=== PATIENT | male | born 1955 | race Caucasian/White ===

== ENCOUNTER 2022-08-30 09:53 | Outpatient (REF) | payer MEDICARE, SELFPAY ==
[2022-08-30 10:35] LABS: Hematocrit 43.6 % (42.0-52.0); Hemoglobin 14.8 g/dl (14.0-18.0); Mean Corpuscular HGB Conc 33.9 g/dl (31.0-36.0); Mean Corpuscular Hemoglobin 31.8 pg (27.0-33.0); Mean Corpuscular Volume 93.8 fL (80.0-98.0); Platelet Count 281 X10*3/uL (160-400); Red Blood Count 4.65 X10*6/uL (4.60-5.80); Red Cell Distribution Width 13.7 % (11.0-16.0); White Blood Count 11.7 X10*3/uL (4.8-10.8)
[2022-08-30 11:04] LABS: Alanine Aminotransferase 18 U/L (0-40); Albumin Level 4.2 g/dL (3.5-5.0); Alkaline Phosphatase 89 U/L (39-117); Aspartate Amino Transferase 21 U/L (5-37); Bilirubin Direct 0.2 mg/dL (0.0-0.5); Bilirubin Total 0.4 mg/dL (0.0-1.0); Iron 96 mcg/dL (45-160); Percent Iron Saturation 32 % (15-50); Total Iron Binding Capacity 298 mcg/dL (228-428); Total Protein 6.8 g/dL (6.5-8.0); Unsaturated Iron Binding 202 ug/dL
[2022-08-30 11:16] LABS: Ferritin 78 ng/mL (20-250)
[2022-09-06 01:32] LABS: FIB-ALT 14 U/L (9-46); FIB-Alpha-2-Macroglobulin 239 mg/dL (106-279); FIB-Apolipoprotein A1 183 mg/dL (94-176); FIB-GGT 22 U/L (3-70); FIB-Haptoglobin 176 mg/dL (43-212); FIB-Total Bilirubin 0.4 mg/dL (0.2-1.2); Liver Fibrosis Score 0.21; Liver Fibrosis Stage F0; Nec Inflam Act Grade A0; Nec Inflam Act Score 0.04
== END 2022-08-30 09:54 | disposition home or self-care (01) ==
LOC: HO.10HDL 09:53
PROVIDERS: Visit Provider Internal Medicine Gastroenterology
DX: B19.20 Unspecified viral hepatitis C without hepatic coma (principal)
CPT/HCPCS: 36415; 80076; 81596; 82728; 83540; 85027

== ENCOUNTER 2022-09-27 07:14 | Outpatient (REF) | payer MEDICARE, SELFPAY ==
[2022-09-27 11:27] LABS: MANUAL DIFF FLAG NO
[2022-09-27 11:43] LABS: Basophils Absolute Auto 0.1 X10*3/uL (0.0-0.2); Basophils Percent Auto 0.7 % (0-2); Eosinophils Absolute Auto 0.4 X10*3/uL (0.0-0.4); Eosinophils Percent Auto 3.8 % (0-4); Hematocrit 45.3 % (42.0-52.0); Hemoglobin 15.4 g/dl (14.0-18.0); Imm Gran Abs Auto 0.02 X10*3/uL (0.00-0.03); Imm Gran Pct Auto 0.2 % (0.0-0.4); Lymphocytes Absolute Auto 1.9 X10*3/uL (1.2-4.9); Lymphocytes Percent Auto 20.6 % (20-40); Mean Corpuscular Hemoglobin 31.9 pg (27.0-33.0); Mean Corpuscular Volume 93.8 fL (80.0-98.0); Mean Platelet Volume 9.7 fL (9.4-12.4); Monocytes Absolute Auto 0.7 X10*3/uL (0.1-1.2); Monocytes Percent Auto 7.8 % (2-11); Neutrophils Absolute Auto 6.2 x10*3/uL (2.0-8.3); Neutrophils Percent Auto 66.9 % (45-73); Platelet Count 302 X10*3/uL (160-400); Red Blood Count 4.83 X10*6/uL (4.60-5.80); Red Cell Distribution Width 13.3 % (11.0-16.0); White Blood Count 9.2 X10*3/uL (4.8-10.8)
[2022-09-27 12:31] LABS: PSA,Total (Free>4and<10) 1.56 ng/mL (0.00-4.00); Thyroid Stimulating Hormone 2.26 uIU/mL (0.32-4.0)
[2022-09-27 12:38] LABS: Alanine Aminotransferase 16 U/L (0-40); Albumin Level 4.1 g/dL (3.5-5.0); Alkaline Phosphatase 85 U/L (39-117); Anion Gap 14 (12-20); Aspartate Amino Transferase 20 U/L (5-37); Bilirubin Total 0.7 mg/dL (0.0-1.0); Blood Urea Nitrogen 18 mg/dL (9-16); Calcium 9.4 mg/dL (8.4-10.2); Carbon Dioxide 29 mmol/L (22-29); Chloride 104 mmol/L (96-108); Cholesterol 150 mg/dL; Estimated Glomerular Filt Rate > 60; Glucose Fasting 125 mg/dL (60-99); HDL Cholesterol 65 mg/dL; LDL Cholesterol Calculated 72 mg/dl; Potassium 4.4 mmol/L (3.3-5.1); Sodium 143 mmol/L (135-145); Total Protein 6.8 g/dL (6.5-8.0); Triglycerides 65 mg/dL
[2022-09-27 14:45] LABS: Vitamin D 25-OH Total 51.2 ng/mL (>30)
== END 2022-09-27 07:15 | disposition home or self-care (01) ==
LOC: HO.HMGCLDS 07:14
PROVIDERS: PCP Internal Medicine; Visit Provider Internal Medicine
DX: Z00.00 Encounter for general adult medical examination without abnormal findings (principal); K21.9 Gastro-esophageal reflux disease without esophagitis; I10 Essential (primary) hypertension; F41.1 Generalized anxiety disorder; F51.01 Primary insomnia; S30.860A Insect bite (nonvenomous) of lower back and pelvis, initial encounter; K13.70 Unspecified lesions of oral mucosa
CPT/HCPCS: 36415; 80053; 80061; 82306; 84153; 84443; 85025

== ENCOUNTER 2022-11-01 08:34 | Outpatient (REF) | payer MEDICARE, SELFPAY ==
--- NOTE | ~2022-11-01 | US_ITS ---
EXAMINATION: US COMPLETE ABDOMEN WITH LIVER ELASTOGRAPHY CLINICAL INFORMATION: Hepatitis C virus. COMPARISON: None. TECHNIQUE: Real-time imaging of the abdominal viscera. Noninvasive ultrasound liver fibrosis assessment is performed using Melissa ElastPQ point quantification shear wave elastography (2D-SWE) with a C5-2 MHz transducer. Multiple elastography samples are obtained. FINDINGS: PANCREAS: Normal. The visualized pancreatic head and body are normal in appearance. The remainder of the pancreas is obscured from visualization by the overlying bowel gas. ABDOMINAL AORTA: The proximal, middle, and distal aortic segments are normal in caliber. INFERIOR VENA CAVA: Visualized portions are normal. LIVER: The liver demonstrates normal size, contour and echogenicity. No focal lesion or intrahepatic biliary duct dilatation. The right lobe measures 7.8 cm in length. The left lobe measures 11.9 cm in length. Portal flow is hepatopedal. Shear wave liver elastography median stiffness is 1.21 m/s (reference: normal median stiffness is 1.3 m/s or less). IQR/median stiffness to assess sampling precision is 0.02 (reference: good quality data set is IQR/median stiffness of 0.15 or less). GALLBLADDER: The gallbladder is physiologically distended with echogenic stones and positive MAURICIO sign. There is no echogenic sludge, polyps, wall thickening or pericholecystic fluid. COMMON BILE DUCT: Normal in caliber measuring 0.4 cm in diameter. RIGHT KIDNEY: Normal. No hydronephrosis. No renal calculi or focal parenchymal lesions. The kidney measures 11.4 cm in maximum dimension. LEFT KIDNEY: Normal. No hydronephrosis. No renal calculi or focal parenchymal lesions. The kidney measures 10.0 cm in maximum dimension. SPLEEN: Suboptimally visualized due to rib shadow. The spleen measures 8.3 cm in maximum dimension. FREE FLUID: None. US/US abdomen comp w elastography IMPRESSION: 1. Cholelithiasis. 2. Liver elastography: Median liver stiffness 1.21 m/s corresponds to high probably normal exam. REFERENCE: Society of Radiologists in Ultrasound Liver Stiffness Thresholds (2020): LIVER STIFFNESS THRESHOLDS: *Liver Stiffness equal or less than 1.3 m/s: High probability of being normal. *Liver Stiffness less than 1.7 m/s: In the absence of other known clinical signs, rules out compensated advanced chronic liver disease. *Liver Stiffness 1.7-2.1 m/s: Suggestive of compensated advanced chronic liver disease but need further test for confirmation. *Liver Stiffness over 2.1 m/s: Rules in compensated advanced chronic liver disease. *Liver Stiffness over 2.4 m/s: Suggestive of clinically significant portal hypertension. QUALITY OF DATA SET: *IQR/Median value equal or less than 0.15 implies a quality data set. *IQR/Median value over 0.15 implies a poor quality data set. SIGNIFICANT CHANGE FROM PRIOR EXAM: Significant change if liver stiffness measurement is 10% or greater from prior exam. OTHER CONSIDERATIONS: The stage of liver fibrosis may be overestimated in the setting of acute hepatitis, liver inflammation, elevated liver function tests, hepatic vascular congestion, obstructive cholestasis, non-fasting state, and infiltrative diseases such as amyloidosis and lymphoma. In some patients with NAFLD, the liver stiffness thresholds for compensated advanced chronic liver disease may be lower. In causes other than viral hepatitis and NAFLD, liver stiffness thresholds are not well established.
== END 2022-11-01 08:35 | disposition home or self-care (01) ==
LOC: HO.US 08:34
PROVIDERS: PCP Internal Medicine; Visit Provider Internal Medicine Gastroenterology
DX: B19.20 Unspecified viral hepatitis C without hepatic coma (principal)
CPT/HCPCS: 76705; 76981

== ENCOUNTER 2023-09-30 07:28 | Outpatient (REF) | payer MEDICARE, SELFPAY ==
[2023-09-30 11:28] LABS: MANUAL DIFF FLAG NO
[2023-09-30 11:41] LABS: Basophils Absolute Auto 0.1 X10*3/uL (0.0-0.2); Basophils Percent Auto 0.7 % (0-2); Eosinophils Absolute Auto 0.3 X10*3/uL (0.0-0.4); Eosinophils Percent Auto 2.9 % (0-4); Hematocrit 45.6 % (42.0-52.0); Hemoglobin 15.4 g/dl (14.0-18.0); Imm Gran Abs Auto 0.02 X10*3/uL (0.00-0.03); Imm Gran Pct Auto 0.2 % (0.0-0.4); Lymphocytes Absolute Auto 1.7 X10*3/uL (1.2-4.9); Lymphocytes Percent Auto 19.7 % (20-40); Mean Corpuscular HGB Conc 33.8 g/dl (31.0-36.0); Mean Corpuscular Hemoglobin 31.6 pg (27.0-33.0); Mean Corpuscular Volume 93.4 fL (80.0-98.0); Mean Platelet Volume 9.8 fL (9.4-12.4); Monocytes Absolute Auto 0.7 X10*3/uL (0.1-1.2); Monocytes Percent Auto 7.8 % (2-11); Neutrophils Absolute Auto 5.9 x10*3/uL (2.0-8.3); Neutrophils Percent Auto 68.7 % (45-73); Platelet Count 288 X10*3/uL (160-400); Red Blood Count 4.88 X10*6/uL (4.60-5.80); Red Cell Distribution Width 13.4 % (11.0-16.0); White Blood Count 8.6 X10*3/uL (4.8-10.8)
[2023-09-30 12:12] LABS: PSA,Total (Free>4and<10) 1.76 ng/mL (0.00-4.00)
[2023-09-30 12:22] LABS: Alanine Aminotransferase 16 U/L (0-40); Albumin Level 4.2 g/dL (3.5-5.0); Alkaline Phosphatase 78 U/L (39-117); Anion Gap 10 (12-20); Aspartate Amino Transferase 27 U/L (5-37); Bilirubin Total 0.9 mg/dL (0.0-1.0); Blood Urea Nitrogen 19 mg/dL (9-16); Calcium 9.3 mg/dL (8.4-10.2); Carbon Dioxide 31 mmol/L (22-29); Chloride 103 mmol/L (96-108); Cholesterol 147 mg/dL (<200); Estimated Glomerular Filt Rate > 60; Glucose Fasting 113 mg/dL (60-99); HDL Cholesterol 63 mg/dL (>40); LDL Cholesterol Calculated 70 mg/dL (<100); Potassium 4.2 mmol/L (3.3-5.1); Sodium 140 mmol/L (135-145); Total Protein 7.2 g/dL (6.5-8.0); Triglycerides 74 mg/dL (<150)
== END 2023-09-30 07:29 | disposition home or self-care (01) ==
LOC: HO.HMGCLDS 07:28
PROVIDERS: PCP Internal Medicine; Visit Provider Internal Medicine
DX: Z00.00 Encounter for general adult medical examination without abnormal findings (principal); F51.01 Primary insomnia; K21.9 Gastro-esophageal reflux disease without esophagitis; N52.9 Male erectile dysfunction, unspecified; Z12.5 Encounter for screening for malignant neoplasm of prostate
CPT/HCPCS: 36415; 80053; 80061; 84153; 85025

== ENCOUNTER 2024-11-30 09:52 | Outpatient (REF) | payer MEDICARE, OTHER, SELFPAY ==
--- OUTSIDE RECORDS SUMMARY | 2024-11-30 11:30 | XMS_ITS ---
Author Organization [facility], Address [address] [facility] [place] [address] Care Team Providers Care Jigger Artisan Name Role Phone Shlomo Rushing [phone] ALLERGIES, ADVERSE REACTIONS, ALERTS Substance Code Code System Type Reaction Severity Status Start Date End Date Sulfa (Sulfonamide Antibiotics) RxNorm Drug allergy () moderate allergy 0 MEDICATIONS Medication Code Code System Start Date Stop Date Route Dosage Directions Fill Instructions BUPROP 24 XL 150MG(W) TAB RxNorm ESCITALOPRAM 10 MG TABLET RxNorm 08/08/20 23 1 OMEPRAZOL RX 20MG CAP RxNorm SILDENAFIL 50MG TAB RxNorm TEMAZEPAM 30 MG CAPSULE RxNorm 023 1 ipratropium bromide 9293127 RxNorm 4 intranasal 2 amoxicillin-po t clavulanate 022025 RxNorm 4 oral 1 PROBLEMS Problem Name Code Code System Start Date End Date Stat Anxiety disorder, unspecified 783959044 [facility] Active Gastro-esophageal reflux disease without esophagitis 963899798 [facility] Active Contusion of left front wall of thorax, initial encounter 03728934933737182 [facility] 11/25/2023 Active Essential (primary) hypertension 74398646 [facility] 12/19/2023 Active Otitis media, unspecified, bilateral 9201023843658876 [facility] 12/19/2023 Active ENCOUNTERS Encounter Diagnosis Code Code System Date Stat us Essential (primary) hypertension 32850776 [facility] 12/19 Active Otitis media, unspecified, bilateral 0785075119653431 [facility] 12/19/2023 Active IMMUNIZATIONS * None VITAL SIGNS Code Code System Vitals Name Date Value and Un its 8462-4 [facility] Blood Pressure-Diastolic 12/19/2023 90 mmHg 8480-6 [facility] Blood Pressure-Systolic 12/19/2023 1 60 mmHg 8867-4 [facility] Heart Rate 12/19/2023 87 /min 8310-5 [facility] Body Temperature 12/19/2023 98.8 F 50983-3 [facility] Oxygen Saturation 12/19/2023 98 % SOCIAL HISTORY * None PROCEDURES * None RESULTS Test Code Code System Description Result Value Date Ref erence Range [facility] SARS-CoV-2 Not Detected 12/19/2023 Not De tected [facility] Flu A Not Detected 12/19/2023 Not Det ected [facility] Flu B Not Detected 12/19/2023 Not Det ected MEDICAL EQUIPMENT * Patient has no history of implantable devices ASSESSMENT * None TREATMENT PLAN Type Description Date MEDICATION Take 875-125 mg tablet 12/19/2023 MEDICATION Take 42 mcg (0.06 %) spray, non- aerosol 12/19/2023 APPOINTMENT Follow up with your primary care physician in 7 day(s). Call or return to this clinic if your condition worsens or if you have any concerns. 12/19/2023 Labs Tests Test Name Code Code System Date [place]/Cepheid SARS-CoV-2 & Fl u A/B Multiplex Assay, Amplified Probe Molecular RT-PCR / NAAT 84880 CPT 12/19/2023 GOALS * None HEALTH CONCERNS * No Health Concerns FUNCTIONAL AND COGNITIVE STATUS Condition Type Condition Effective Dates Condition Status CONSULTATION NOTES * None DISCHARGE SUMMARY NOTES * None HISTORY AND PHYSICAL NOTES * Reason for visit - Illness IMAGING NOTES * None LABORATORY REPORT NARRATIVE NOTES * None PATHOLOGY REPORT NARRATIVE NOTES * None PROGRESS NOTES * None
--- OUTSIDE RECORDS SUMMARY | 2024-11-30 11:30 | XMS_ITS ---
Author Organization [facility], Address [address] [facility] [place] [address] Care Team Providers Care Sterilisation Technician Name Role Phone Abida Meléndez Unavailable [phone] ALLERGIES, ADVERSE REACTIONS, ALERTS Substance Code Code [...] MG CAPSULE RxNorm 023 1 ipratropium bromide 0488426 RxNorm 4 intranasal 2 amoxicillin-po t clavulanate 453422 RxNorm 4 oral 1 PROBLEMS Problem Name Code Code System Start Date End Date Stat Anxiety disorder, unspecified 434545651 [facility] Active Gastro-esophageal reflux disease without esophagitis 659696151 [facility] Active Contusion of left front wall of thorax, initial encounter 64875034091230449 [facility] 11/25/2023 Active Essential (primary) hypertension 06890601 [facility] 12/19/2023 Active Otitis media, unspecified, bilateral [id number] [facility] Active ENCOUNTERS Encounter Diagnosis Code Code System Date Stat us Contusion of left front wall of thorax, initial encounter [id number] [facility] 11/25/2023 Acti ve IMMUNIZATIONS * None VITAL SIGNS Code Code System Vitals Name Date Value and Un its 8462-4 [facility] Blood Pressure-Diastolic 11/25/2023 111 mmHg 8480-6 [facility] Blood Pressure-Systolic 11/25/2023 1 79 mmHg 8867-4 [facility] Heart Rate 11/25/2023 71 /min 9279-1 [facility] Respiratory Rate 11/25/2023 18 /min 8310-5 [facility] Body Temperature 11/25/2023 97.5 F 82415-5 [facility] Oxygen Saturation 11/25/2023 98 % SOCIAL HISTORY * None PROCEDURES * None MEDICAL EQUIPMENT * Patient has no history of implantable devices ASSESSMENT * None TREATMENT PLAN Type Description Date ORDERS You were evaluated f or an injury to your ribs. You had x-rays done that Do not show rib fracture. However, we will call with Radiologist report if it differs from the report you were given here today.. This can be a very painful and slow healing injury. Fractured /broken ribs take as long to heal as ribs that are bruised /contused: on average 4-6 weeks.Take Motrin 600mg every 6 hours as needed for pain. Take this with food Be sure to cough 10x every hour and take 10 deep breaths hourly until your pain is better and you are breathing normally again without pain. You can reduce/minimize the discomfort of these important deep breaths but splinting the chest wall in the area of pain by holding a small pillow or folded towel against the chest wall when coughing and deep breathing.Although painful, this respiratory hygiene is of importance as it will reduce the risk of developing pneumonia which can occur with shallow breathing and coughing.If you develop any fever, chill, cough, shortness of breath, difficulty breathing, abdominal pain, or any worsening symptoms please go to the Emergency Department 11/25/2023 APPOINTMENT If not feeling geraldine r in 3 day(s), please see your primary care physician. If you do not have a primary care physician, please return to this clinic. 11/25/2023 Lab Tests None GOALS * None HEALTH CONCERNS * No Health Concerns FUNCTIONAL AND COGNITIVE STATUS * None CONSULTATION NOTES * None DISCHARGE SUMMARY NOTES * None HISTORY AND PHYSICAL NOTES * None IMAGING NOTES * /[place] History: left ant rib pain after fallExaminationMultiple views of the left ribs and PA chestComparisons:None provided. FindingsThere is no rib fracture identified.The lungs are clear. No infiltrate or consolidation noted.No pleural effusions are seen.There is no pneumothorax present IMPRESSION:No evidence for rib fracture LABORATORY REPORT NARRATIVE NOTES * None PATHOLOGY REPORT NARRATIVE NOTES * None PROGRESS NOTES * None
[2024-11-30 11:48] LABS: Basophils Absolute Auto 0.1 X10*3/uL (0.0-0.2); Basophils Percent Auto 1.3 % (0-2); Eosinophils Absolute Auto 0.1 X10*3/uL (0.0-0.4); Eosinophils Percent Auto 1.3 % (0-4); Hematocrit 41.5 % (42.0-52.0); Hemoglobin 14.2 g/dl (14.0-18.0); Imm Gran Abs Auto 0.02 X10*3/uL (0.00-0.03); Imm Gran Pct Auto 0.4 % (0.0-0.4); Lymphocytes Absolute Auto 1.3 X10*3/uL (1.2-4.9); Lymphocytes Percent Auto 23.9 % (20-40); MANUAL DIFF FLAG SCAN; Mean Corpuscular HGB Conc 34.2 g/dl (31.0-36.0); Mean Corpuscular Hemoglobin 31.1 pg (27.0-33.0); Mean Corpuscular Volume 90.8 fL (80.0-98.0); Mean Platelet Volume 9.3 fL (9.4-12.4); Monocytes Absolute Auto 1.3 X10*3/uL (0.1-1.2); Monocytes Percent Auto 23.7 % (2-11); Neutrophils Absolute Auto 2.7 x10*3/uL (2.0-8.3); Neutrophils Percent Auto 49.4 % (45-73); Platelet Count 240 X10*3/uL (160-400); Red Blood Count 4.57 X10*6/uL (4.60-5.80); Red Cell Distribution Width 13.5 % (11.0-16.0); SCAN SMEAR FLAG 1; White Blood Count 5.5 X10*3/uL (4.8-10.8)
[2024-11-30 12:14] LABS: SLIDE REVIEW VERIFIED
[2024-11-30 12:33] LABS: Alanine Aminotransferase 14 U/L (0-40); Albumin Level 3.8 g/dL (3.5-5.0); Alkaline Phosphatase 77 U/L (39-117); Anion Gap 11 (12-20); Aspartate Amino Transferase 28 U/L (5-37); Bilirubin Total 0.5 mg/dL (0.0-1.0); Blood Urea Nitrogen 14 mg/dL (9-16); Calcium 8.7 mg/dL (8.4-10.2); Carbon Dioxide 26 mmol/L (22-29); Chloride 108 mmol/L (96-108); Cholesterol 124 mg/dL (<200); Estimated Glomerular Filt Rate > 60; Glucose Fasting 105 mg/dL (60-99); HDL Cholesterol 62 mg/dL (>40); LDL Cholesterol Calculated 54 mg/dL (<100); Potassium 4.2 mmol/L (3.3-5.1); Sodium 141 mmol/L (135-145); Triglycerides 42 mg/dL (<150)
[2024-11-30 12:40] LABS: PSA,Total (Free>4and<10) 3.21 ng/mL (0.00-4.00)
[2024-11-30 12:45] LABS: Thyroid Stimulating Hormone 1.37 uIU/mL (0.32-4.0); Vitamin D 25-OH Total 38.3 ng/mL (>30)
== END 2024-11-30 09:53 | disposition home or self-care (01) ==
LOC: HO.LAB 09:52
PROVIDERS: PCP Internal Medicine; Visit Provider Internal Medicine
DX: Z00.00 Encounter for general adult medical examination without abnormal findings (principal); I10 Essential (primary) hypertension; K21.9 Gastro-esophageal reflux disease without esophagitis; F41.1 Generalized anxiety disorder; F51.01 Primary insomnia; N52.9 Male erectile dysfunction, unspecified; Z12.5 Encounter for screening for malignant neoplasm of prostate
CPT/HCPCS: 36415; 80053; 80061; 82306; 84153; 84443; 85025

== ENCOUNTER 2025-01-01 08:58 | Outpatient (AMB) | payer MEDICARE, OTHER, SELFPAY ==
--- NOTE | 2025-01-01 09:03 | A.OFFPC_ITS ---
Vital Signs 01/01/25 09:14 Height 5 ft 3 in Weight 164 lb BMI 29.0 BP 152/82 H Blood Pressure Location Rt brachial Pulse 72 Pulse Source Pulse Oximeter Temp 97.3 F Pulse Oximetry (%) 99 Intake Visit Reasons: 3 month follow up Intake Note: restless legs, night sweats, right rib inury Allergies bee venom protein (honey bee) Allergy (Verified 01/01/25 10:00) Rash Latex, Natural Rubber Allergy (Verified 01/01/25 10:00) Rash Medication List - Last Reconciled 01/01/25 by Ann Leavitt PA-C bupropion HCl XL 150 mg PO QAM epinephrine 0.3 mg IM Q10M PRN escitalopram oxalate 10 mg PO DAILY lorazepam (Ativan) 1 mg PO DAILY PRN multivitamin 1 tab PO DAILY omeprazole 20 mg PO DAILY sildenafil 100 mg PO DAILY PRN temazepam 30 mg PO BEDTIME PRN PFSH Medical History (Updated 01/01/25 @ 10:14 by Ann Leavitt PA-C) Overweight (BMI 25.0-29.9) Chronic night sweats Elevated blood pressure reading Restless leg syndrome Follow-up exam, 3-6 months since previous exam Unexplained night sweats Rib pain on right side Former smoker Depression Epigastric hernia GERD (gastroesophageal reflux disease) Nicotine dependence Chronic hepatitis Insomnia Anxiety Seasonal allergies Essential hypertension Surgical History History of colonoscopy (~12/25/15) History of liver biopsy H/O wisdom tooth extraction Physical exam (Primary Care) Vital Signs: Last Vital Signs Temp 97.3 F 01/01/25 09:14 Pulse 72 01/01/25 09:14 BP 152/82 H 01/01/25 09:14 Pulse Ox 99 01/01/25 09:14 Care Plan Goal for BP management: 130/80 Next steps: pt will monitor BP at home over next month and f/u visit will determine if pt will need to be started on BP medications BMI result Body Mass Index 29.0 BMI Assessment/Plan discussion: High BMI High, discussed plan: lifestyle, weight reduction, dietary, physical activity and alcohol moderation Coding Level of Care Code New Pt Level 4 (81928) Complex EM visit Add On G2211 Diagnoses Rib pain on right side R07.81 Unexplained night sweats R61 Follow-up exam, 3-6 months since previous exam Z09 Depression F32.A GERD (gastroesophageal reflux disease) K21.9 Chronic hepatitis K73.9 Insomnia G47.00 Anxiety F41.9 Seasonal allergies J30.2 Essential hypertension I10 Elevated blood pressure reading R03.0 Restless leg syndrome G25.81 Chronic night sweats R61 Overweight (BMI 25.0-29.9) E66.3 Assessment & Plan Assessment & Plan (1) Rib pain on right side: Code(s): R07.81 - Pleurodynia Category: Medical (2) Unexplained night sweats: Code(s): R61 - Generalized hyperhidrosis Category: Medical (3) Follow-up exam, 3-6 months since previous exam: Code(s): Z09 - Encounter for follow-up examination after completed treatment for conditions other than malignant neoplasm Category: Medical (4) Depression: Code(s): F32.A - Depression, unspecified Category: Medical (5) GERD (gastroesophageal reflux disease): Code(s): K21.9 - Gastro-esophageal reflux disease without esophagitis Category: Medical Plan: Patient to continue omeprazole 20 mg daily. Condition is chronic and stable continue to monitor. (6) Chronic hepatitis: Comment: in remission, s/p treatment with peg-interferon and ribaviron(Dr. Boo) Code(s): K73.9 - Chronic hepatitis, unspecified Category: Medical Plan: Patient to continue yearly visits with Dr. Boo. Condition is chronic and stable continue to monitor. (7) Insomnia: Code(s): G47.00 - Insomnia, unspecified Category: Medical Plan: Patient to continue temazepam 30 mg at bedtime. Patient will be started on gabapentin 100 mg at bedtime. Condition is chronic and stable continue to monitor. (8) Anxiety: Code(s): F41.9 - Anxiety disorder, unspecified Category: Medical Plan: Patient to continue bupropion 100 mg daily. Patient to continue escitalopram 10 mg daily. Patient to continue p.r.n. 1 mg lorazepam. Condition is chronic and stable continue to monitor. (9) Seasonal allergies: Code(s): J30.2 - Other seasonal allergic rhinitis Category: Medical Plan: Patient has EpiPen. Condition is stable will continue to monitor. (10) Essential hypertension: Code(s): I10 - Essential (primary) hypertension Category: Medical Plan: Patient was currently on a low salt diet, exercise and trialing weight loss. Blood pressure is noted to be elevated today. Patient does not want to be started on blood pressure medication at today's visit. Patient will monitor blood pressure over the next month and if blood pressure continues to be el evated patient will be started on blood pressure medication. Condition is chronic and stable continue to monitor. (11) Elevated blood pressure reading: Code(s): R03.0 - Elevated blood-pressure reading, without diagnosis of hypertension Category: Medical Plan: see above (12) Restless leg syndrome: Code(s): G25.81 - Restless legs syndrome Category: Medical Plan: Patient will be started on gabapentin 100 mg at bedtime. Condition is chronic and stable continue to monitor. (13) Chronic night sweats: Code(s): R61 - Generalized hyperhidrosis Category: Medical Plan: Will order A1c, says test run level, vitamin B12, Lyme, magnesium. Condition is chronic and stable continue to monitor. (14) Overweight (BMI 25.0-29.9): Code(s): E66.3 - Overweight Category: Medical Plan: Patient to improve his diet and exercise regimen. Condition is chronic and stable continue to monitor. Plan Plan - Provide telehealth appointment if unable to attend the clinic visit. - monitor blood pressure over the next month at least daily or 3 times a week and write it down for your next appointment - start gabapentin 100 mg at bedtime for restless leg syndrome - A1c level ordered - right rib with PA chest ordered due to rib injury a few weeks ago - patient to monitor nocturnal sweating; will order A1c, testosterone level, vitamin B12, Lyme test, magnesium. Orders: Orders Hemoglobin A1c Today Z00.00 - Encounter for general adult medical examination without abnormal findings XR ribs RT min 3V w CXR1V Today R07.81 - Pleurodynia Lyme IgG/IgM w/reflex to WB Today R61 - Generalized hyperhidrosis Magnesium Today Z00.00 - Encounter for general adult medical examination without abnormal findings Testosterone, Total Today Z00.00 - Encounter for general adult medical examination without abnormal findings Vitamin B12 and Folate Today Z00.00 - Encounter for general adult medical examination without abnormal findings Medications: New gabapentin 100 mg PO BEDTIME 90 caps 1RF Patient Instructions: Plan - Provide telehealth appointment if unable to attend the clinic visit. - monitor blood pressure over the next month at least daily or 3 times a week and write it down for your next appointment - start gabapentin 100 mg at bedtime for restless leg syndrome - A1c level ordered - right rib with PA chest ordered due to rib injury a few weeks ago - patient to monitor nocturnal sweating; will order A1c, testosterone level, vitamin B12, Lyme test, magnesium. Scribe Plan - Not visible on output: History of Present Illness The patient is a 69-year-old male presenting for a 3 month follow up. Today patient's BP is noted to be eleveated at 152/82. Historically, hypertension has not been consistently problematic; however, recent measurements indicate elevated blood pressure levels, with the most recent reading at 152 mmHg systolic. The patient reports a history of elevated monocytes, potentially rela rebecca to a recent rib fracture from a skiing incident in November, leading to a high monocyte count, suggested to be a transient inflammatory response. The patient also expresses concern over transient increases in fasting glucose, although he is not diagnosed with diabetes. Cholesterol levels have been persistently low, and liver function remains normal. The patient has successfully ceased smoking since September 07, 2022, having stopped on what would have been his anniversary, following the passing of his . Patient is planning on going to [place] for the next 3 weeks and then when he comes back he will be going to [employer]. He has noted at nighttime he has restless leg syndrome. He denies paresthesias, weakness or any other symptoms related to this. He has also noted some intermittent episodes of dizziness along with his girlfriend with similar symptoms. They have been taking meclizine which provide symptomatic relief. Social History - No history of current smoking; ceased smoking since September 07, 2022. - Increased physical activity and exercise regimen reported. - Planning to travel to [place] and [facility]. - Family history of longevity noted, with the father living to 99 years old despite prostate and bladder issues. - Previous living experiences in [place]; familial ties remain. Review of Systems - Neurological: Reports restless legs primarily during periods of rest, such as watching TV. - Psychological: Denies panic issues despite history of generalized anxiety and major depressive disorder. - Dermatological: Reporting night sweats most commonly when not taking temazepam. - Gastrointestinal: Consistent use of omeprazole for GERD, no reported new gastrointestinal symptoms. Physical Exam Appearance: Alert. Oriented X3. No acute distress. Head: Normal external exam. Normocephalic. Atraumatic. Eyes: Pupils are equal, round, and reactive to light. Extraocular movements intact. Conjunctiva and sclera normal. Eyelids normal. Ears: External auditory canal normal. Tympanic membranes normal. Fluid noted in the right ear. Throat: Pharynx normal. Uvula midline. Moist mucous membranes. Neck: Normal inspection. Neck supple. Full range of motion. Cardiovascular: Normal heart rate and rhythm. Heart sound normal. No murmurs noted. Pulses normal throughout. Respiratory: No respiratory distress. Painless inspiration. Breath sounds normal. No wheezes/rales/rhonchi noted. Chest nontender. No accessory muscle usage noted or decreased air movement noted. Abdomen: Soft and nontender. Bowel sounds normal in all 4 quadrants. No distention noted. No organomegaly noted. No visible injury noted. Tenderness noted on the right side where ribs were injured. Back: No costovertebral angle tenderness. Full range of motion noted. Skin: Skin warm and dry. Normal skin color. Normal skin turgor. No rashes/lesions/lacerations noted. Extremities: No lower extremity edema. Extremities exhibit normal range of motion. Extremities nontender. Neuro: Oriented X 3. No motor deficit. No sensory deficit. Reflexes normal. Results - Labs: Elevated fasting glucose noted; cholesterol levels low (Cholesterol: 121, Triglycerides: 42, LDL: 54); PSA negative; vitamin D and TSH within normal limits. - Procedures: Colonoscopy due 2025 (last completed in 2015). Plan - Provide telehealth appointment if unable to attend the clinic visit. - monitor blood pressure over the next month at least daily or 3 times a week and write it down for your next appointment - start gabapentin 100 mg at bedtime for restless leg syndrome - A1c level ordered - right rib with PA chest ordered due to rib injury a few weeks ago - patient to monitor nocturnal sweating; will order A1c, testosterone level, vitamin B12, Lyme test, magnesium. Patient was informed and verbally consented to the use of an ambient scribe for clinic note documentation during this visit. Discussion Notes During this visit, I discussed with the patient the importance of monitoring blood pressure regularly and recording readings for further evaluation. We talked through the likely causes of previously elevated monocyte count due to inflammation and potential transient elevation in glucose levels possibly i ndicating an early prediabetic state. I emphasized the significance of maintaining exercise, diet, and cessation of smoking for overall health improvement. Consideration of gabapentin was agreed upon for managing restless leg symptoms. The patient agreed to pursue further investigation into nocturnal sweating to rule out any hormonal imbalance. Follow-up is intended once the patient returns from travel, using either an in-person or telehealth visit to discuss ongoing care.
[2025-01-01 09:14] VITALS: BP 152/82; PULSE 72; TEMP 36.3; O2SAT 99; BMI 29.0
--- OUTSIDE RECORDS SUMMARY | 2025-01-01 09:27 | XMS_ITS ---
Author Organization [facility] Address [address] [place] [address] Care Team Providers Care Pool Player Name Role Phone Jasen (RETIRED) Shlomo AYOUB Primary Care Provid er Unavailable Daniel Boo Jr Unavailable ALLERGIES Allergen (clinical drug ingredient) Drug/Non Drug Allergy documented on EMR Reaction Allergy Type Onset Date Status Latex Latex Unknown Allergy Active Bee Sting Unknown Allergy Active REASON FOR VISIT Patient presents today for a f/u office visit hx of gerd MEDICATIONS Medication SIG (Take, Route, Frequency, Duration) Notes Start Date End Date Status Omeprazole 20 MG 1 capsule 30 minutes before morning meal Orally Once a day for 30 day(s) Active Multi Vitamin - 1 tablet Orally Once a day for 30 day(s) Active buPROPion HCl 150 MG as directed Orally Active Restoril 30 MG 1 capsule at bedtime as needed Orally Once a day Active Escitalopram Oxalate 10 MG 1 tablet Oral ly Once a day for 30 day(s) Active SOCIAL HISTORY Tobacco Use: Social History Observation Description Date Details (start date - stop date) Former Smoker NA - NA Sex Assigned At : Social History Observation Description Sex Assigned At Unknown Tobacco Use/Smoking Question Answer Notes Patient is a former smoker How long has it been since you last smoked? 6-12 months Alcohol Screen Question Answer Notes Did you have a drink contain ing alcohol in the past year? Yes How often did you have a dri nk containing alcohol in the past year? 4 or more times a week (4 points) How many drinks did you have on a typical day when you were drinking in the past year? 1 or 2 drinks (0 point) How often did you have 6 or more drinks on one occasion in the past year? Never (0 point) Points 4 Interpretation Positive PROBLEMS Problem Type ICD Code Onset Dates Problem Status W/U Status Risk SNOMED Code Notes Problem Colon cancer screening (Z12.11) Active confirmed 852784086 VITAL SIGNS BMI 27.62 kg/m2 10/01/2024 Blood pressure systolic 000 mm Hg 10/01/20 24 Blood pressure diastolic 00 mm Hg 024 Height 65 in 10/01/2024 Temperature 98.9 degrees Fahrenheit 10/01/20 24 Weight 166 lbs 10/01/2024 Encounters Encounter Location Date Provider Diagnosis [facility] [address] [place] [address] 10/01/2024 Daniel Boo Jr Gastroesophageal reflux disease, unspecified whether esophagitis present K21.9 ; Hepatitis C virus infection without hepatic coma, unspecified chronicity B19.20 and Colon cancer screening Z12.11 ASSESSMENTS Encounter Date Diagnosis Assessment Notes Treatment Notes Treatment Clinical Notes 10/01/2024 Gastroesophageal reflux disease, unspecified whether esophagitis present (ICD-10 - K21.9) Gastroesophageal reflux disease material was printed 10/01/2024 Hepatitis C virus infection without hepatic coma, unspecified chronicity (ICD-10 - B19.20) 10/01/2024 Colon cancer screening (ICD-10 - Z12.11) PLAN OF TREATMENT Treatment Notes Assessment Notes Gastroesophageal reflux dise ase, unspecified whether esophagitis present Gastroesophageal reflux disease material was printed Next Appt Details Follow Up: 1 Year, Reason: Provider Name:Daniel ramsey Jr, 10/02/2025 09:40:00 AM, [address], [address], [place], [address],
--- OUTSIDE RECORDS SUMMARY | 2025-01-01 09:27 | XMS_ITS | Patient Health Record ---
Author Organization [facility] Address [address] [place] [address] Care Team Providers Care Bus Starter Name Role Phone Jasen (RETIRED) Shlomo AYOUB Primary Care Provid er Unavailable Daniel Boo Jr Unavailable ALLERGIES Allergen (clinical drug ingredient) Drug/Non Drug Allergy documented on EMR Reaction Allergy Type Onset Date Status Latex Latex Unknown Allergy Active Bee Sting Unknown Allergy Active REASON FOR REFERRAL No Information MEDICATIONS Medication SIG (Take, Route, Frequency, Duration) [...] Once a day for 30 day(s) Active IMMUNIZATIONS Vaccine Route Administration Date Status Comme nts Influenza Unknown 08/18/2022 Administered Influenza Unknown 09/19/2024 Administered SOCIAL HISTORY Tobacco Use: Social History Observation [...] W/U Status Risk SNOMED Code Notes Problem Hepatitis C virus infection without hepatic coma, unspecified chronicity (B19.20) Active confirmed 53015596 Problem Gastroesophageal reflux disease, unspecified whether esophagitis present (K21.9) Active confirmed 577367287 Problem Colon cancer screening (Z12.11) Active confirmed 747603276 VITAL SIGNS Temperature 98.9 degrees Fahrenheit 10/01/2024 Blood pressure diastolic 00 mm Hg 10/01/2024 Height 65 in 10/01/2024 Blood pressure systolic 000 mm Hg 10/01/2024 Weight 166 lbs 10/01/2024 BMI 27.62 kg/m2 10/01/2024 Encounters Encounter Location Date Provider Diagnosis [facility] [address] [place] [address] 10/01/2024 Daniel Boo Jr Gastroesophageal reflux disease, unspecified whether esophagitis present K21.9 ; Hepatitis C virus infection without hepatic coma, unspecified chronicity B19.20 and Colon cancer screening Z12.11 ASSESSMENTS Encounter Date Diagnosis Assessment Notes Treatment Notes Treatment Clinical Notes 10/01/2024 Hepatitis C virus infection without hepatic coma, unspecified chronicity (ICD-10 - B19.20) 10/01/2024 Gastroesophageal reflux disease, unspecified whether esophagitis present (ICD-10 - K21.9) Gastroesophageal reflux disease material was printed 10/01/2024 Colon cancer screening (ICD-10 - Z12.11) PLAN OF TREATMENT Pending Test Test Name Order Date LIVER PROFILE 08/30/2022 IRON + IBC (FE) 08/30/2022 FERRITIN 08/30/2022 CBC w/o DIFF 08/30/2022 US ABDOMEN COMP WITH ELASTOGRAPHY 2021 Next Appt Details Provider Name:Daniel ramsey Jr, 10/02/2025 09:40:00 AM, [address], [address], [place], [address], Insurance Providers Payer Name Payer Address Payer Phone Subscriber Number Group Number Insured Name Patient Relationship to Insured Coverage Start Date Coverage End Date MEDICARE OF [place] [address] [place] [address] [phone] [id number] AMAURY YOUNG Self - patient is the insured [facility] [address] [facility] [phone] [id number] AMAURY YOUNG Self - patient is the insured MEDICAL (GENERAL) HISTORY Medical History History ICD Code Hepatitis C infection, SVR after interfe lexi/ribavirin 2004 Depression Gastroesophageal reflux disease Colonoscopy 12/30, hyperplastic polyp, te n-year followup Insomnia Surgical History Surgery Date(Month/Year) trigger finger 07/19/2018 ventral hernia
--- OUTSIDE RECORDS SUMMARY | 2025-01-01 09:28 | XMS_ITS ---
Author Organization Shlomo Aggarwal DO, FACP Address [address] [place], [place] [id number] Care Team Providers Care Electricians Top Helper Name Role Phone Shlomo Aggarwal Primary Care Provider ALLERGIES Allergen (clinical drug ingredient) Drug/Non Drug Allergy documented on EMR Reaction Allergy Type Onset Date Status sulfa rash Drug Allergy Active bee stings (uncoded) diffuse rash, blockage of the ears Allergy Active REASON FOR REFERRAL Reason CSE Diagnosis 1 Encounter for genera l adult medical examination without abnormal findings (Z00.00) Referral Organization Shlomo Fajardo O, FACP Referring Provider First Name Shlomo Referring Provider Last Name Jasen Referring Provider Speciality Internal M edicine Referred Provider Jakub Salas Referred Provider Specialty Dermatology General Notes Fátima Casillas 024 11:05:04 AM EST > referral faxed; specialist's office will call patient to schedule appointment. Referral Priority Routine REASON FOR VISIT Follow up Essential hypertension MEDICATIONS Medication SIG (Take, Route, Frequency, Duration) Notes Start Date End Date Status Temazepam 30 MG 1 capsule at bedtime as needed for sleep Orally Once a day for 30 days 10/03/2024 Active EPINEPHrine 0.3 MG/0.3ML INJECT THE CONT ENTS OF 1 PEN INTRAMUSCULARLY DIRECTED Active Sildenafil Citrate 100 MG 1 tablet as ne eded Orally Once a day Active Multivitamins 1 tablet Orally Once a day Active Omeprazole 20 MG 1 capsule 1/2 to 1 h our before morning meal Orally Once a day for 30 day(s) 10/03/2024 Active Omeprazole 20 MG 1 capsule 30 minutes before morning meal Orally Once a day for 90 days Active LORazepam 1 MG 1 tablet as needed f or panic or anxiety Orally Once a day 02/04/2023 Active Escitalopram Oxalate 10 MG 1 tablet Orally Once a day A ctive buPROPion HCl ER (XL) 150 MG 1 tablet in the morning Orally Once a day Active SOCIAL HISTORY Tobacco Use: Social History Observation Description Date Details (start date - stop date) Former Smoker NA - NA Sex Assigned At : Social History Observation Description Sex Assigned At Unknown Tobacco Use/Smoking Question Answer Notes Patient is a former smoker How long has it been since y ou last smoked? 1-5 years Additional Findings: Tobacco Non-User Fo rmer smoker, currently using no form of tobacco Alcohol Screen Question Answer Notes Did you [...] Never (0 point) Points 4 Interpretation Positive VITAL SIGNS BMI 28.83 kg/m2 10/03/2024 Blood pressure systolic 130 mm Hg 10/03/20 24 Blood pressure diastolic 80 mm Hg 024 Height 64 in 10/03/2024 Weight 168 lbs 10/03/2024 Encounters Encounter Location Date Provider Diagnosis Shlomo Aggarwal DO, [address] [phone] 10/03/2024 Shlomo Aggarwal Essential hypertensi on I10 ; Gastroesophageal reflux disease, esophagitis presence not specified K21.9 ; Generalized anxiety disorder F41.1 ; Primary insomnia F51.01 ; Erectile dysfunction, unspecified erectile dysfunction type N52.9 and Encounter for general adult medical examination without abnormal findings Z00.00 ASSESSMENTS Encounter Date Diagnosis Assessment Notes Treatment Notes Treatment Clinical Notes 10/03/2024 Essential hypertensi on (ICD-10 - I10) Low salt diet, exercise, weight loss 10/03/2024 Gastroesophageal ref lux disease, esophagitis presence not specified (ICD-10 - K21.9) 10/03/2024 Generalized anxiety disorder (ICD-10 - F41.1) Doing very well. Taper and wean off the bupropion. 10/03/2024 Primary insomnia (ICD-10 - F51.01) 10/03/2024 Erectile dysfunction , unspecified erectile dysfunction type (ICD-10 - N52.9) 10/03/2024 Encounter for genera l adult medical examination without abnormal findings (ICD-10 - Z00.00) PLAN OF TREATMENT Medication Medication Name Sig Start Date Stop Date Notes Temazepam 30 MG 1 capsule at bedtime as needed for sleep Orally Once a day for 30 days 10/03/2024 EPINEPHrine 0.3 MG/0.3ML INJECT THE CONT ENTS OF 1 PEN INTRAMUSCULARLY DIRECTED Sildenafil Citrate 100 MG 1 tablet as ne eded Orally Once a day Multivitamins 1 tablet Orally Once a day Omeprazole 20 MG 1 capsule 1/2 to 1 h our before morning meal Orally Once a day for 30 day(s) 10/03/2024 LORazepam 1 MG 1 tablet as needed f or panic or anxiety Orally Once a day 02/04/2023 Escitalopram Oxalate 10 MG 1 tablet Orally Once a day buPROPion HCl ER (XL) 150 MG 1 tablet in the morning Orally Once a day Treatment Notes Assessment Notes Essential hypertension Low salt diet, ex ercise, weight loss Generalized anxiety disorder Doing very well. Taper and wean off the bupropion. Pending Test Test Name Order Date CBC w DIFF 10/03/2024 LIPOPROTEIN FRACTIONATION (LIPID PANEL) 10/03/2024 PROFILE, FASTING 10/03/2024 TSH (THYROID STIMULATING HORMONE) 2023 VITAMIN D 25-OH TOTAL 10/03/2024 PSA,Total (Free>4and<10) 10/03/2024 Referrals Referral Date Details SHANIKA, Jakub Salas Next Appt Details Follow Up: 6 Months, Reason: follow up visit,review lab work Progress Notes * Examination Category Sub-Category Detail Notes General Examination GENERAL APPEARANCE: well dev eloped, well nourished, in no acute distress HEAD: normocephalic, atrau matic EYES: sclera non-icteric EARS: NOSE: THROAT: NECK/THYROID: neck supple, full ra nge of motion, no cervical lymphadenopathy, thyroid normal, no carotid bruit HEART: regular rate and rhy thm, S1, S2 normal, no murmurs CHEST: normal LUNGS: clear to auscultatio n bilaterally ABDOMEN: soft, nontender, non distended, bowel sounds present, normal NEUROLOGIC: nonfocal, motor stre ngth normal upper and lower extremities, sensory exam intact SKIN: warm and dry EXTREMITIES: no edema PERIPHERAL PULSES: 2+ dorsalis pedis, 2 + posterior tibial MALE GENITOURINARY no hernia, no penile lesions or discharge, no testicular mass, testes descended bilaterally PSYCH: alert, oriented, cog nitive function intact, cooperative with exam, good eye contact, judgement and insight good History and Physical Notes * HPI (History of Present Illness) Category Sub-Category Detail Notes Depression Screening PHQ-9 Little inte rest or pleasure in doing things: Not at all Feeling down, depressed, or hopeless: No t at all Trouble falling or staying asleep, or sl eeping too much: Not at all Feeling tired or having little energy: N ot at all Poor appetite or overeating: Not at all Feeling bad about yourself o r that you are a failure, or have let yourself or your family down: Not at all Trouble concentrating on thi ngs, such as reading the newspaper or watching television: Not at all Moving or speaking so slowly that other people could have noticed; or the opposite, being so fidgety or restless that you have been moving around a lot more than usual: Not at all Thoughts that you would be b raghu off or of hurting yourself in some way: Not at all Total Score: 0 Interpretation and Intervention Depression Jitendra masters Findings: Negative Follow-Up for Depression: : Review of PH Q-9 found negative result; no follow-up needed Fall Risk Fall History Have you had two or more fal ls in the past year?: No Have you had any falls with injury in th e past year?: No Fall Risk Assessment:: No falls in the p ast year Communication Needs [facility] Communication Needs - [facility] Clarence moreno Impairment?: No Vision Impairment?: Yes wears glasses Cognitive Impairment?: No SDOH Questions SDOH Questions In the past year have you been worried about losing your housing?: No In the past year have you or any family members you live with been unable to get any of the following when it was really needed? Check all that apply:: None Consultation Request Notes Referral Date Referring Provider Referred Provider Not alejandra 10/03/2024 Shlomo Aggarwal Mark [facility]
--- OUTSIDE RECORDS SUMMARY | 2025-01-01 09:28 | XMS_ITS | Patient Health Record ---
Author Organization Shlomo Aggarwal DO, FACP Address [address] [place], [place] [id number] Care Team Providers Care Head Holder Name Role Phone Shlomo Aggarwal Primary Care [...] patient to schedule appointment. Referral Priority Routine MEDICATIONS Medication SIG (Take, Route, Frequency, Duration) Notes Start Date End Date Status Temazepam 30 MG 1 capsule at bedtime as needed for sleep Orally Once a day for 30 days 10/03/2024 Active Omeprazole 20 MG 1 capsule 30 minutes before morning meal Orally Once a day for 90 days Active LORazepam 1 MG 1 tablet as needed f or panic or anxiety Orally Once a day 02/04/2023 Active EPINEPHrine 0.3 MG/0.3ML INJECT THE CONT ENTS OF 1 PEN INTRAMUSCULARLY DIRECTED Active Sildenafil Citrate 100 MG 1 tablet as ne eded Orally Once a day Active Multivitamins 1 tablet Orally Once a day Active Escitalopram Oxalate 10 MG 1 tablet Orally Once a day A ctive Omeprazole 20 MG 1 capsule 1/2 to 1 h our before morning meal Orally Once a day for 30 day(s) 10/03/2024 Active buPROPion HCl ER (XL) 150 MG 1 tablet in the morning Orally Once a day Active IMMUNIZATIONS Vaccine Route Administration Date Status Comme nts Influenza Unknown 08/09/2012 Administered TDaP IM Intramuscular 01/26/2013 Administered Influenza Unknown 08/17/2013 Administered Influenza Quad IM Intramuscular 09/08/2015 Administered Zoster Vaccine SC Subcutaneous 10/20/2015 Administered Influenza Quad Unknown 09/10/2016 Administered PCV 13 Unknown 09/10/2016 Administered Pneumococcal - PPSV23 IM Intramuscular 01/06/2018 Administ ered Influenza Quad IM Intramuscular 09/08/2018 Administered Influenza High Dose IM Intramuscular 07/27/2020 Administer ed Influenza Quad IM Intramuscular 09/16/2021 Administered Influenza Quad Unknown 09/06/2017 Administered Shingrix Unknown 11/30/2018 Administered Pneumococcal - PPSV23 Unknown 09/28/2017 Administered Influnza High Dose Quad Unknown 07/26/2022 Administered COVID-19 Moderna Vaccine Unknown 02/10/2021 Administere d COVID-19 Moderna Vaccine Unknown 10/07/2021 Administere d COVID-19 Moderna Bivalent Unknown 07/26/2022 Administer ed COVID-19 Moderna Vaccine Unknown 01/13/2021 Administere d COVID-19 Moderna Vaccine Unknown 02/17/2022 Administere d TDaP Unknown 02/24/2023 Administered COVID-19 Moderna Bivalent Unknown 07/01/2023 Administer ed Flu-aIIV4 Unknown 07/15/2023 Administered Influenza Unknown 07/23/2024 Administered SOCIAL HISTORY Tobacco Use: Social History [...] W/U Status Risk SNOMED Code Notes Problem Generalized anxiety disorder (F41.1) Active confirmed 61734732 Problem Primary insomnia (F51.01) Active confirmed 2470976 Problem Essential hypertension (I10) Active confirmed 46563847 Problem Erectile dysfunction, unspecified erectile dysfunction type (N52.9) Active confirmed 605649902 Problem Gastroesophageal reflux disease, esophagitis presence not specified (K21.9) Active confirmed 496373047 VITAL SIGNS Blood pressure diastolic 80 mm Hg 10/03/2024 Height 64 in 10/03/2024 Blood pressure systolic 130 mm Hg 10/03/2024 Weight 168 lbs 10/03/2024 BMI 28.83 kg/m2 10/03/2024 Encounters Encounter Location Date Provider Diagnosis Shlomo Aggarwal DO, [address] [phone] 10/03/2024 Shlomo Aggarwal Essential hypertensi on I10 ; Gastroesophageal reflux disease, esophagitis presence not specified K21.9 ; Generalized anxiety disorder F41.1 ; Primary insomnia F51.01 ; Erectile dysfunction, unspecified erectile dysfunction type N52.9 and Encounter for general adult medical examination without abnormal findings Z00.00 Shlomo Aggarwal DO, [address] [phone] 07/23/2024 Shlomo Aggarwal DO, [facility] [address] [place], [place] [phone] 07/26/2024 Shlomo Aggarwal DO, [facility] [address] [place], [place] [phone] 07/28/2024 Shlomo Aggarwal ASSESSMENTS Encounter Date Diagnosis Assessment Notes Treatment [...] findings (ICD-10 - Z00.00) PLAN OF TREATMENT Pending Test Test Name Order Date CBC w DIFF 10/03/2024 LIPOPROTEIN FRACTIONATION (LIPID PANEL) 10/03/2024 PROFILE, FASTING 10/03/2024 TSH (THYROID STIMULATING HORMONE) 2023 VITAMIN D 25-OH TOTAL 10/03/2024 PSA,Total (Free>4and<10) 10/03/2024 Insurance Providers Payer Name Payer Address Payer Phone Subscriber Number Group Number Insured Name Patient Relationship to Insured Coverage Start Date Coverage End Date MEDICARE [address] [place] [phone] [id number] Robert Parkinson Self - patient is the insured [facility] [address] [place] [phone] [id number] Robert Parkinson Self - patient is the insured MEDICAL (GENERAL) HISTORY Medical History History ICD Code cervical strain seasonal allergies anxiety insomnia hepatitis C, chronic, in rem ission, s/p treatment with peg-interferon and ribaviron (Dr. Boo) gastroesophageal reflux disease (GERD) Nicotine dependence, unspecified, uncomp licated F17.200 Essential hypertension I10 Surgical History Surgery Date(Month/Year) wisdom teeth extraction liver biopsy, Dr. Boo epigastric hernia repair, Dr. Ruano
--- OUTSIDE RECORDS SUMMARY | 2025-01-01 09:28 | XMS_ITS ---
Author Organization Shlomo Aggarwal DO, FACP Address [address] [place], [place] [phone] Care Team Providers Care Yarn Packer Name Role Phone Shlomo Aggarwal Primary Care Provider [phone] REASON FOR VISIT Sildenafil Encounters Encounter Location Date Provider Diagnosis Shlomo Aggarwal DO, FACP [address] [place] [phone] 07/26/2024 Shlomo Aggarwal PLAN OF TREATMENT No Information
--- OUTSIDE RECORDS SUMMARY | 2025-01-01 09:29 | XMS_ITS ---
Author Organization Shlomo Aggarwal DO [facility] Address [address] [place], [place] [phone] Care Team Providers Care Grain Mill Products Inspector Name Role Phone Shlomo Aggarwal Primary Care Provider REASON FOR VISIT RE:Sildenafil MEDICATIONS Medication SIG (Take, Route, Frequency, Duration) Notes Start Date End Date Status Sildenafil Citrate 100 MG 1 tablet as ne eded Orally Once a day for 30 days Active Encounters Encounter Location Date Provider Diagnosis Shlomo Aggarwal DO, FACP [address] [place] [phone] 07/28/2024 Shlomo Aggarwal PLAN OF TREATMENT Medication Medication Name Sig Start Date Stop Date Notes Sildenafil Citrate 100 MG 1 tablet as ne eded Orally Once a day for 30 days
== END 2025-01-01 09:38 | disposition home or self-care (01) ==
LOC: HO.HMCSH 08:58
PROVIDERS: PCP Internal Medicine; Visit Provider Physician Assistant Medical
DX: R07.81 Pleurodynia (principal); R61 Generalized hyperhidrosis; Z09 Encounter for follow-up examination after completed treatment for conditions other than malignant neoplasm; F32.A Depression, unspecified; K21.9 Gastro-esophageal reflux disease without esophagitis; K73.9 Chronic hepatitis, unspecified; G47.00 Insomnia, unspecified; F41.9 Anxiety disorder, unspecified; J30.2 Other seasonal allergic rhinitis; I10 Essential (primary) hypertension; R03.0 Elevated blood-pressure reading, without diagnosis of hypertension; G25.81 Restless legs syndrome; E66.3 Overweight

== ENCOUNTER → 2025-01-01 08:58 | Outpatient (BNVA) | payer MEDICARE, OTHER, SELFPAY | PROVIDERS: PCP Internal Medicine; Visit Provider Physician Assistant Medical | DX: Z09 Encounter for follow-up examination after completed treatment for conditions other than malignant neoplasm (principal); R07.81 Pleurodynia; R61 Generalized hyperhidrosis; F32.A Depression, unspecified; K21.9 Gastro-esophageal reflux disease without esophagitis; K73.9 Chronic hepatitis, unspecified; G47.00 Insomnia, unspecified; F41.9 Anxiety disorder, unspecified; J30.2 Other seasonal allergic rhinitis; I10 Essential (primary) hypertension; R03.0 Elevated blood-pressure reading, without diagnosis of hypertension; G25.81 Restless legs syndrome; E66.3 Overweight; Z68.29 Body mass index [BMI] 29.0-29.9, adult; Z71.3 Dietary counseling and surveillance | CPT/HCPCS: 99202 ==

== ENCOUNTER 2025-01-02 12:56 | Outpatient (REF) | payer MEDICARE, OTHER, SELFPAY ==
--- NOTE | ~2025-01-02 | XR_ITS ---
CLINICAL HISTORY: R07.81 - Pleurodynia 4 view, chest and right ribs Comparison: None Findings: Bones intact. No dislocations. The visualized lungs are normal. IMPRESSION: 1. No acute fractures. This document has been electronically signed by: Lonnie Blackwell MD on 01/02/2025 15:59:38
--- OUTSIDE RECORDS SUMMARY | 2025-01-02 13:09 | XMS_ITS | Patient Health Record ---
Author Organization [facility] Address [address] [place] [address] Care Team Providers Care Foundation Drill Operator Name Role Phone Jasen (RETIRED) Shlomo AYOUB [...] hepatic coma, unspecified chronicity (B19.20) Active confirmed 51648466 Problem Gastroesophageal reflux disease, unspecified whether esophagitis present (K21.9) Active confirmed 266299496 Problem Colon cancer screening (Z12.11) Active confirmed 586548950 VITAL SIGNS Temperature 98.9 degrees Fahrenheit 10/01/2024 Blood pressure diastolic 00 mm Hg 10/01/2024 Height 65 in 10/01/2024 Blood pressure systolic 000 mm Hg 10/01/2024 Weight 166 lbs 10/01/2024 BMI 27.62 kg/m2 10/01/2024 Encounters Encounter Location Date Provider Diagnosis [facility] [address] [place] [address] 10/01/2024 Daniel Boo Jr Gastroesophageal reflux disease, [...] Name:Daniel ramsey Jr, 10/02/2025 09:40:00 AM, [address], [address], [place], [address], Insurance Providers Payer Name Payer Address Payer Phone Subscriber Number Group Number Insured Name Patient Relationship to Insured Coverage Start Date Coverage End Date MEDICARE OF [place] [address] [place] [address] [phone] [id number] AMAURY YOUNG Self - patient is the insured [facility] [address] [facility] [id number] AMAURY YOUNG Self - patient is the insured MEDICAL (GENERAL) HISTORY Medical History History ICD Code Hepatitis C infection, SVR after interfe lexi/ribavirin 2004 Depression Gastroesophageal reflux disease Colonoscopy 12/30, hyperplastic polyp, te n-year followup Insomnia Surgical History Surgery Date(Month/Year) trigger finger 07/19/2018 ventral hernia
--- OUTSIDE RECORDS SUMMARY | 2025-01-02 13:09 | XMS_ITS ---
Author Organization [facility] Address [address] [place] [address] Care Team Providers Care Piece Jobber Name Role Phone Jasen (RETIRED) Shlomo AYOUB Primary Care Provid er Unavailable Daniel Boo Jr Unavailable [phone] ALLERGIES Allergen (clinical drug ingredient) Drug/Non Drug Allergy documented on EMR Reaction Allergy Type Onset Date Status Latex Latex Unknown Allergy Active Bee Sting Unknown Allergy Active REASON FOR VISIT Patient presents today for hep c MEDICATIONS Medication SIG (Take, Route, Frequency, Duration) Notes Start Date End Date Status Omeprazole 20 MG 1 capsule 30 minutes before morning meal Orally Once a day for 30 day(s) Active Restoril 30 MG 1 capsule at bedtime as needed Orally Once a day Active Multi Vitamin - 1 tablet Orally Once a day for 30 day(s) Active Escitalopram Oxalate 10 MG 1 tablet Oral ly Once a day for 30 day(s) Active buPROPion HCl 150 MG as directed Orally Active SOCIAL HISTORY Tobacco Use: Social History [...] W/U Status Risk SNOMED Code Notes Problem Gastroesophageal reflux disease, unspecified whether esophagitis present (K21.9) Active confirmed [id number] VITAL SIGNS BMI 25.79 kg/m2 07/21/2023 Blood pressure systolic 000 mm Hg 07/21/20 23 Blood pressure diastolic 0098.7 mm Hg 023 Height 65 in 07/21/2023 Weight 155 lbs 07/21/2023 Encounters Encounter Location Date Provider Diagnosis [facility] [address] [place] [address] 07/21/2023 Daniel Boo Jr Gastroesophageal reflux disease, unspecified whether esophagitis present K21.9 and Hepatitis C virus infection without hepatic coma, unspecified chronicity B19.20 ASSESSMENTS Encounter Date Diagnosis Assessment Notes Treatment Notes Treatment Clinical Notes 07/21/2023 Gastroesophageal reflux disease, unspecified whether esophagitis present (ICD-10 - K21.9) Gastroesophageal reflux disease material was printed 07/21/2023 Hepatitis C virus infection without hepatic coma, unspecified chronicity (ICD-10 - B19.20) PLAN OF TREATMENT Treatment Notes Assessment Notes Gastroesophageal reflux dise ase, unspecified whether esophagitis present Gastroesophageal reflux disease material was printed Next Appt Details Follow Up: 1 Year, Reason: Provider Name:Daniel ramsey Jr, 10/02/2025 09:40:00 AM, [address], [address], [place], [address],
--- OUTSIDE RECORDS SUMMARY | 2025-01-02 13:10 | XMS_ITS ---
Author Organization Shlomo Aggarwal DO, FACP Address [address] [place], [place] [id number] Care Team Providers Care Lapel Stitcher Name Role Phone Shlomo Aggarwal Primary Care Provider REASON FOR VISIT Sildenafil Encounters Encounter Location Date Provider Diagnosis Shlomo Aggarwal DO, FACP [address] [place] [phone] 07/26/2024 Shlomo Aggarwal PLAN OF TREATMENT No Information
--- OUTSIDE RECORDS SUMMARY | 2025-01-02 13:10 | XMS_ITS ---
Author Organization [facility] Address [address] [place] [address] Care Team Providers Care Material Control Manager Name Role Phone Jasen (RETIRED) Shlomo AYOUB Primary Care Provid er Unavailable Daniel Boo Jr [phone] REASON FOR VISIT colon / ov recall Encounters Encounter Location Date Provider Diagnosis [facility] [address] [place] [address] [address] [place] [address] 07/21/2023 Daniel Boo Jr PLAN OF TREATMENT Next Appt Details Provider Name:Daniel ramsey Jr, 10/02/2025 09:40:00 AM, [address] [place] [address], [address], [place], [address],
--- OUTSIDE RECORDS SUMMARY | 2025-01-02 13:10 | XMS_ITS ---
Author Organization Shlomo Aggarwal DO, FACP Address [address] [place], [place] [id number] Care Team Providers Care General Freight Agent Name Role Phone Shlomo Aggarwal Primary Care [...] Location Date Provider Diagnosis Shlomo Aggarwal DO, [address] [phone] 10/03/2024 Shlomo Aggarwal Essential hypertensi on I10 [...] year Communication Needs [facility] Communication Needs - [facility] Clarence moreno Impairment?: No Vision Impairment?: Yes [...] Referral Date Referring Provider Referred Provider Not aleajndra 10/03/2024 Shlomo Aggarwal Mark CSE
--- OUTSIDE RECORDS SUMMARY | 2025-01-02 13:10 | XMS_ITS | Patient Health Record ---
Author Organization Shlomo Aggarwal DO, FACP Address [address] [place], [place] [id number] Care Team Providers Care Adzing And Boring Machine Feeder Name Role Phone Shlomo Aggarwal Primary Care [...] Problem Generalized anxiety disorder (F41.1) Active confirmed [id number] Problem Primary insomnia (F51.01) Active confirmed 7760585 Problem Essential hypertension (I10) Active confirmed 90536585 Problem Erectile dysfunction, unspecified erectile dysfunction type (N52.9) Active confirmed 905724591 Problem Gastroesophageal reflux disease, esophagitis presence not specified (K21.9) Active confirmed [id number] VITAL SIGNS Blood pressure diastolic 80 mm Hg 10/03/2024 Height 64 in 10/03/2024 Blood pressure systolic 130 mm Hg 10/03/2024 Weight 168 lbs 10/03/2024 BMI 28.83 kg/m2 10/03/2024 Encounters Encounter Location Date Provider Diagnosis Shlomo Aggarwal DO, [address] [id number] 10/03/2024 Shlomo Aggarwal Essential hypertensi on I10 ; Gastroesophageal reflux disease, esophagitis presence not specified K21.9 ; Generalized anxiety disorder F41.1 ; Primary insomnia F51.01 ; Erectile dysfunction, unspecified erectile dysfunction type N52.9 and Encounter for general adult medical examination without abnormal findings Z00.00 Shlomo Aggarwal DO, [address] [id number] 07/23/2024 Shlomo Aggarwal DO, [facility] [address] [place], [place] [phone] 07/26/2024 Shlomo Aggarwal DO, [facility] [address] [place], [place] [phone] 07/28/2024 Shlomo Aggarwal ASSESSMENTS Encounter Date Diagnosis [...] MEDICARE [address] [place] [phone] [id number] Robert Parkinson Self - patient is the insured [facility] [address] [place] [phone] [id number] Robert Parkinson Self - patient is the [...]
--- OUTSIDE RECORDS SUMMARY | 2025-01-02 13:10 | XMS_ITS ---
Author Organization [facility] Address [address] [place] [address] Care Team Providers Care Dough Raiser Name Role Phone Jasen (RETIRED) Shlomo AYOUB Primary Care Provid er Unavailable Daniel Boo Jr Unavailable [phone] ALLERGIES Allergen (clinical drug ingredient) Drug/Non [...] Problem Colon cancer screening (Z12.11) Active confirmed [id number] VITAL SIGNS BMI 27.62 kg/m2 10/01/2024 Blood pressure systolic 000 mm Hg 10/01/20 24 Blood pressure diastolic 00 mm Hg 024 Height 65 in 10/01/2024 Temperature 98.9 degrees Fahrenheit 10/01/20 24 Weight 166 lbs 10/01/2024 Encounters Encounter Location Date Provider Diagnosis [facility] [address] [place] [address] 10/01/2024 Daniel Boo Jr Gastroesophageal reflux disease, [...] Name:Daniel ramsey Jr, 10/02/2025 09:40:00 AM, [address], [address], [place], [address],
--- OUTSIDE RECORDS SUMMARY | 2025-01-02 13:10 | XMS_ITS ---
Author Organization Shlomo Aggarwal DO [facility] Address [address] [place], [place] [phone] Care Team Providers Care Ear Specialist Name Role Phone Shlomo Aggarwal Primary Care Provider REASON FOR VISIT RE:Sildenafil MEDICATIONS Medication SIG (Take, Route, Frequency, Duration) Notes Start Date End Date Status Sildenafil Citrate 100 MG 1 tablet as ne eded Orally Once a day for 30 days Active Encounters Encounter Location Date Provider Diagnosis Shlomo Aggarwal DO, FACP [address] [place] [phone] 07/28/2024 Shlomo Aggarwal PLAN OF TREATMENT Medication Medication Name Sig Start Date Stop Date Notes Sildenafil Citrate 100 MG 1 tablet as ne eded Orally Once a day for 30 days
--- OUTSIDE RECORDS SUMMARY | 2025-01-02 13:10 | XMS_ITS | Clinical Summary ---
Author Organization [facility] Address [address] [place] [address] Care Team Providers Care Acid Regenerator Name Role Phone Shlomo Aggarwal DO Primary Care Provider [phone] Allergies Active Allergy Reactions Criticality Noted Date Comments Latex, Natural Rubber 09/06/2017 Sulfa (Sulfonamide Antibiotics) High 08/15 Medications buPROPion (WELLBUTRIN XL) 150 MG 24 hr tablet TAKE 1 TABLET BY MOUTH EVERY DAY IN THE MORNING 12/19/2023 Active escitalopram oxalate (LEXAPRO) 10 MG tablet TAKE 1 TABLET BY MOUTH EVERY DAY FOR 90 DAYS 01/28/2024 Active omeprazole (PriLOSEC) 20 MG capsule 02/11/2024 Active sildenafiL (VIAGRA) 50 MG tablet 02/07/2024 Active temazepam (RESTORIL) 30 mg capsule TAKE 1 CAPSULE BY MOUTH EVERY DAY AT BEDTIME NEEDED FOR SLEEP 01/27/2024 Active Immunizations Name Administration Dates Next Due Fluarix Quadrivalent Prefilled Syringe 7,09/10/2016 Flucelvax Trivalent PFS IM; Without Preservative (18+ mos) 09/08/2018 Moderna Spikevax Covid-19 SDV (12+years) 024 Pneumovax 23 Prefilled Syringe 01/06/2018,2016 Prevnar 13 Prefilled Syringe 09/10/2016 Social History Tobacco Use Types Packs/Day Years Used Date Smoking Tobacco: Never Assessed PHQ-2 Answer Date Recorded PHQ-2 Score Patient declined 02/15/2024 Sex and Gender Information Value Date Recorded Sex Assigned at Not on file Legal Sex Male 10:32 AM EST Gender Identity Not on file Sexual Orientation Not on file Plan of Treatment Health Maintenance Due Date Last Done Comments Colorectal Cancer: COLONOSCO PY Screening every 10 yrs (or Modifier) 1955 Depression: Screening Annual ly using PHQ-2/9 in Adults 18 yrs or above (or HM Modifier)([facility]) 1973 Hepatitis C Virus Infection in Adolescents and Adults: Screening (or Modifier) ([facility]) 1973 SDOH Screening Reminder: Yulissa ruth for all adults ([facility]) 1973 Tobacco Smoking Cessation: i n Adults excluding Women: Behavioral and Pharmacotherapy Interventions ([facility]) 1973 DTaP/Tdap/Td Vaccines ([facility]) (1 - Tdap) 1974 Lipid Screening: Every 5 yrs for Men aged 35+ (or HM Modifier) ([facility]) 1991 Colorectal Cancer Screening 45 -75 Yrs (or HM Modifier) 02/04/2000 Colorectal Cancer: FLEXIBLE SIGMOIDOSCOPY Screening every 5 yrs 02/04/2000 Colorectal Cancer: Fecal Immunochemical Test (FIT) Annually [facility] 02/04/2000 Colorectal Cancer: High-sens itivity gFOBT Screening Annually [facility] 02/04/2000 Colorectal Cancer: Stool Col oguard Screening every 3 yrs 02/04/2000 Colorectal Cancer:CT Colonog mallory Screening every 5 yrs 02/04/2000 Zoster/Shingles Vaccine Seri es Screening: Adults aged 18+ yrs (or HM Modifiers)([facility]) (1 of 2) 2005 Pneumococcal Vaccination Scr eening: Patients 65+ yrs of age ([facility]) (2 of 2 - PCV) 02/04/2020 01/06/2018, 09/28/2017, 09/10/2016 Flu Vaccination: Ages 65+: Y early High Dose Recommended (or Modifier)([facility]) 06/14/2024 09/08/2018, , 09/10/2016 COVID-19 Vaccine Screening: Initial Series and Booster Status ([facility]) (2 - 2023- season) 2024 02/15/2024 RSV Vaccines (1 - 1-dose 75+ series) 2030 Medical Devices Not on file Insurance [facility] MEDICARE Care Teams Acid Regenerator Relationship Specialty Start Date End Date Shlomo Aggarwal DO [address] [place] [phone] PCP - General Internal Medicine 08/14/20
[2025-01-02 13:56] LABS: Estimated Average Glucose 123 mg/dL; Hemoglobin A1C 155.2131 umol/L; Hemoglobin A1c % 5.9 % (<6.0)
== END 2025-01-02 12:57 | disposition home or self-care (01) ==
LOC: HO.XRAY 12:56
PROVIDERS: PCP Internal Medicine; Visit Provider Physician Assistant Medical
DX: Z00.00 Encounter for general adult medical examination without abnormal findings (principal); R07.81 Pleurodynia; Z13.1 Encounter for screening for diabetes mellitus
CPT/HCPCS: 36415; 71101; 83036

== ENCOUNTER → 2025-01-02 13:01 | Outpatient (BNV) | payer MEDICARE, OTHER, SELFPAY | PROVIDERS: PCP Internal Medicine; Visit Provider Radiology Diagnostic Radiology | DX: R07.81 Pleurodynia (principal) | CPT/HCPCS: 71101 ==

== ENCOUNTER 2025-02-01 09:10 | Outpatient (AMB) | payer MEDICARE, OTHER, SELFPAY ==
--- NOTE | 2025-02-01 09:11 | A.OFFPC_ITS ---
Intake Visit Reasons: 1 month follow up Deep Fryer Assembler Required: No Rn Sane: Not Required per policy Accompanied by: Self / Same As Patient Allergies bee venom protein (honey bee) Allergy (Verified 02/01/25 09:31) Rash Latex, Natural Rubber Allergy (Verified 02/01/25 09:31) Rash Medication List - Last Reconciled 02/01/25 by Ann Leavitt PA-C bupropion HCl XL 150 mg PO QAM epinephrine 0.3 mg IM Q10M PRN escitalopram oxalate 10 mg PO DAILY gabapentin 100 mg PO BEDTIME lorazepam (Ativan) 1 mg PO DAILY PRN multivitamin 1 tab PO DAILY omeprazole 20 mg PO DAILY sildenafil 100 mg PO DAILY PRN temazepam 30 mg PO BEDTIME PRN Tobacco use date assessed: 02/01/25 Fall risk assessment: No Falls in past year Last assessed Fall Risk: 02/01/25 Dental Screening Dental Screen Date: 02/01/25 Did you have a dental visit in the last 12 months?: Yes Did you have a dental problem in the last 6 months where you did not have access to dental care?: No Was dental information given to patient?: Patient has dentist [facility] Medical History (Updated 02/01/25 @ 10:30 by Ann Leavitt PA-C) Erectile dysfunction Hyperhidrosis Overweight (BMI 25.0-29.9) Chronic night sweats Elevated blood pressure reading Restless leg syndrome Follow-up exam, 3-6 months since previous exam Unexplained night sweats Rib pain on right side Former smoker Depression Epigastric hernia GERD (gastroesophageal reflux disease) Nicotine dependence Chronic hepatitis Insomnia Anxiety Seasonal allergies Essential hypertension Surgical History History of colonoscopy (~12/25/15) History of liver biopsy H/O wisdom tooth extraction Social History Housing: House Alcohol intake: current Alcohol intake frequency: a few times a week Patient Tobacco Use Status: Former Tobacco user e-Cigarette/Vaping Use: Never Used Second Hand Smoke Exposure: Yes service: No Current occupational status: retired Cognitive needs: No Hearing needs: No Vision needs: Yes (Glasses) Questionnaire PHQ-9 Over the last 2 weeks, how often have you been bothered by any of the following problems? 1. Little interest or pleasure in doing things: not at all 2. Feeling down, depressed, or hopeless: not at all 3. Trouble falling or staying asleep, or sleeping too much: not at all 4. Feeling tired or having little energy: not at all 5. Poor appetite or overeating: not at all 6. Feeling bad about yourself - or that you are a failure or have let yourself or your family down: not at all 7. Trouble concentrating on things, such as reading the newspaper or watching television: not at all 8. Moving or speaking so slowly that other people could have noticed. Or the opposite - being so fidgety or restless that you have been moving around a lot more than usual: not at all 9. Thoughts that you would be better off or of hurting yourself in some way: not at all Total score: 0 Depression Screening Interpretation: Negative Depression Screening Done: Yes 50328 - PHQ-9 Billing: Yes Source: Developed by Drs. Shlomo Ulrich, Soraya Tang, Titus Austin and colleagues, with an educational isabel from [employer]. Thrive Questionnaire Date Thrive assessed: 02/01/25 I am a: Patient What is your living situation today?: I have a steady place to live Within the past 12 months, did the food you bought not last and you didn't have the money to get more?: Never true Within the past 12 months, did you worry whether your food would run out before you got money to buy more?: Never true Do you have trouble paying for medicines?: No Do you have trouble getting transportation to medical appointments?: No Do you have trouble paying your heating and electricity bill?: No Do you have trouble taking care of your child, family member or friend?: No Do you have trouble with day-to-day activities such as bathing, preparing meals, shopping, managing finances, etc.?: No Are you currently unemployed and looking for a job?: No Are you interested in more education?: No Please select the resources that you would like help with: None Currently or been in a relationship where the following occur: No concerns reported THRIVE Score: 0 AUDIT C Alcohol Use Questionnaire (AUDIT-C) 1. How often do you have a drink containing alcohol?: 2-3 times a week 2. How many drinks containing alcohol do you have on a typical day when you are drinking?: 1 or 2 3. How often do you have six or more drinks on one occasion?: Never Total Score: 3 Score Reviewed/Action Taken: No VALENTIN-7 AMB Questionnaire VALENTIN-7 Date VALENTIN - 7 assessed: 02/01/25 Feeling nervous, anxious, or on edge: 0 = Not at all Not being able to stop or control worryin = Not at all Worrying too much about different things: 0 = Not at all Trouble relaxin = Not at all Being so restless that it is hard to sit still: 0 = Not at all Becoming easily annoyed or irritable: 0 = Not at all Feeling afraid as if something awful might happen: 0 = Not at all Total VALENTIN-7 score (0-4 normal; 5-9 mild; 10-14 moderate; 15-21 severe): 0 Source: Developed by Drs. Shlomo Ulrich, Soraya Tang, Titus Austin and colleagues, with an educational isabel from [employer]. VALENTIN-7 Assessment Billing VALENTIN-7 Assessment Tool: VALENTIN-7 Assessment 69463 Physical exam (Primary Care) Tobacco/Smoking Status: Tobacco use Status Tobacco use date assessed 02/01/25 02/01/25 09:15 Patient Tobacco Use Status Former Tobacco user 02/01/25 09:15 e-Cigarette/Vaping Use Never Used 02/01/25 09:15 PHQ-9: PHQ-9 Score PHQ-9: Total score 0 02/01/25 09:31 Depression Screening Interpretation: Negative Thrive Assessment: Date of Thrive Assessment Date Thrive assessed 02/01/25 02/01/25 09:15 Currently or been in a relationship where the following occur: No concerns reported Telehealth Telehealth Telehealth Platform: Telephone Location of provider rendering services: practice address Location of patient: address on file Patient Identification confirmed using: Name, : Yes Telehealth method: voice only Patient verbally consented to treatment: Yes Patient verbally consented to billing insurance company: Yes Patient informed of any privacy concerns related to visit: Yes Minutes spent on Phone/Video with Pt.: 20 Coding Level of Care Code Tele Est Pt Level 4 (90748) Complex EM visit Add On G2211 Diagnoses Hyperhidrosis R61 Overweight (BMI 25.0-29.9) E66.3 Erectile dysfunction N52.9 Essential hypertension I10 Additional Codes PHQ-9 - 41760 - PHQ-9 Billing: Yes ([id number]) VALENTIN-7 Assessment Billing - VALENTIN-7 Assessment Tool: VALENTIN-7 Assessment 24949 ([id number]) Assessment & Plan Assessment & Plan (1) Hyperhidrosis: Code(s): R61 - Generalized hyperhidrosis Category: Medical Plan: Symptoms of night sweating are noted, but current lab results are normal; thus, no treatment modification is required at present. (2) Overweight (BMI 25.0-29.9): Code(s): E66.3 - Overweight Category: Medical Plan: Emphasis on lifestyle adaptation with specific focus on dietary reduction of sodium to complement hypertension management. (3) Erectile dysfunction: Code(s): N52.9 - Male erectile dysfunction, unspecified Category: Medical Plan: Patient agrees to increased sildenafil prescription to maintain effective management per personal routine and pharmacy provision. (4) Essential hypertension: Code(s): I10 - Essential (primary) hypertension Category: Medical Plan: The patient will maintain dietary and lifestyle changes to support blood pressure control, monitoring readings at home. Pharmacologic intervention will be revisited if control remains inconsistent. Plan Plan Patient was informed and verbally consented to the use of an ambient scribe for clinic note documentation during this visit. 1. Hyperhidrosis Symptoms of night sweating are noted, but current lab results are normal; thus, no treatment modification is required at present. 2. Obesity Emphasis on lifestyle adaptation with specific focus on dietary reduction of sodium to complement hypertension management. 3. Erectile Dysfunction Patient agrees to increased sildenafil prescription to maintain effective management per personal routine and pharmacy provision. 4. Essential Hypertension The patient will maintain dietary and lifestyle changes to support blood pressure control, monitoring readings at home. Pharmacologic intervention will be revisited if control remains inconsistent. Discussion Notes I reviewed the patient's home blood pressure readings and reinforced dietary strategies to maintain levels below 130/80. We discussed the relationship between sodium and potassium, confirming normal lab results. For Erectile Dysfunction, I agreed with the plan to increase sildenafil to 15 tablets monthly, ensuring continuity in management. Anticipated ongoing monitoring and follow-up are aligned with lifestyle modifications, supporting overall health goals and planning for further assessment. Medications: New sildenafil administer 30 minutes to 4 hours before activity 100 mg PO DAILY PRN 15 tabs 3RF erectile dysfunction Patient Instructions: Patient Instructions - Continue home blood pressure monitoring, aiming for readings below 130/80. - Maintain a low-sodium diet rich in whole foods. - Avoid extra salt and greasy, fried foods. - Keep physically active and ensure regular exercise. - Monitor sweating and report any changes in symptoms. - Take sildenafil as prescribed, with the increased monthly allocation. - Attend scheduled follow-up appointment on 04/10; confirm time with Ben or Carmen if necessary. - Reach out with any concerns or changes in symptoms before next appointment. Scribe Plan - Not visible on output: History of Present Illness The patient is a 69-year-old male presenting with a focus on blood pressure management as part of routine follow-up care. His self-monitored blood pressure readings have varied, with averages hovering near 130/80, aligning with efforts to reduce salt intake and increase whole foods in his diet. His highest recorded blood pressure was 142, but he aims to consistently keep it below 130/80. Current management is centered on lifestyle modifications, considering a potential medication intervention at the next consult if blood pressure control remains above desired levels. During the consultation, the patient's nocturnal sweating, potentially impacting potassium and sodium levels, was discussed. However, recent laboratory tests confirm normal results. The patient's management of Erectile Dysfunction under Dr. Thompson includes sildenafil, with an agreed increase in dispensing from 15 tablets monthly, accommodating the patient's familiarity and stability with the current dosage. Review of Systems - General: Reports excessive sweating at night. - Cardiovascular: Denies chest pain or palpitations. - Endocrine: Denies weight changes. - Genitourinary: Indicates sufficient current management of Erectile Dysfunction.
== END 2025-02-01 09:44 | disposition home or self-care (01) ==
LOC: HO.HMCH 09:10
PROVIDERS: PCP Internal Medicine; Visit Provider Physician Assistant Medical
DX: R61 Generalized hyperhidrosis (principal); E66.3 Overweight; N52.9 Male erectile dysfunction, unspecified; I10 Essential (primary) hypertension

== ENCOUNTER → 2025-02-01 09:10 | Outpatient (BNVA) | payer MEDICARE, OTHER, SELFPAY | PROVIDERS: PCP Internal Medicine; Visit Provider Physician Assistant Medical | DX: R61 Generalized hyperhidrosis (principal); E66.3 Overweight; N52.9 Male erectile dysfunction, unspecified; I10 Essential (primary) hypertension | CPT/HCPCS: 96127 ==

== ENCOUNTER 2025-04-10 09:19 | Outpatient (AMB) | payer MEDICARE, OTHER, SELFPAY ==
[2025-04-10 09:25] VITALS: BP 150/82; PULSE 62; RESP 14; TEMP 36.7; O2SAT 98; BMI 28.3
--- NOTE | 2025-04-10 09:25 | A.OFFPC_ITS ---
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 Accompanied by: Self / Same As Patient Allergies bee venom protein (honey bee) Allergy (Verified 04/10/25 10:51) Rash Latex, Natural Rubber Allergy (Verified 04/10/25 10:51) Rash Medication List - Last Reconciled 04/10/25 by Ann Leavitt PA-C bupropion HCl XL 150 mg PO QAM epinephrine 0.3 mg IM Q10M PRN escitalopram oxalate 10 mg PO DAILY gabapentin 100 mg PO BEDTIME lorazepam (Ativan) 1 mg PO DAILY PRN multivitamin 1 tab PO DAILY omeprazole 20 mg PO DAILY sildenafil 100 mg PO DAILY PRN temazepam 30 mg PO BEDTIME PRN Tobacco use date assessed: 04/10/25 Dental Screening Dental Screen Date: 02/01/25 HPI 6 month follow up HPI Details The patient is a 70-year-old male presenting with a follow-up visit for hypertension management. 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 The patient's goal is to achieve a blood pressure reading below 140/80 mmHg without pharmacological intervention. He also has a history of prediabetes, with a fasting glucose level of 105 mg/dL recorded in November. His liver enzymes and PSA levels were within normal limits. The patient is actively managing his glucose levels through diet. The patient reports difficulty with insomnia, for which he has been prescribed temazepam. However, his insurance no longer covers this medication without trying alternatives. Previous trials with Ambien were not successful due to nocturnal awakenings. 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 - Actively manages diet, focusing on red ucing salt and fatty food intake. - History of medication use for insomnia , with reliance on temazepam. [facility] Medical History (Updated 04/10/25 @ 10:57 by Ann Leavitt PA-C) Prediabetes Overweight with body mass index (BMI) of 28 to 28.9 in adult Establishing care with new doctor, encounter for Erectile dysfunction Hyperhidrosis Overweight (BMI 25.0-29.9) Chronic night sweats Elevated blood pressure reading Restless leg syndrome Follow-up exam, 3-6 months since previous exam Unexplained night sweats Rib pain on right side Former smoker Depression Epigastric hernia GERD (gastroesophageal reflux disease) Nicotine dependence Chronic hepatitis Insomnia Anxiety Seasonal allergies Essential hypertension Surgical History History of colonoscopy (~12/25/15) History of liver biopsy H/O wisdom tooth extraction Social History Housing: House Alcohol intake: current Alcohol intake frequency: a few times a week Patient Tobacco Use Status: Former Tobacco user e-Cigarette/Vaping Use: Never Used Second Hand Smoke Exposure: Yes service: No Current occupational status: retired Cognitive needs: No Hearing needs: No Vision needs: Yes (Glasses) Questionnaire PHQ-9 Over the last 2 weeks, how often have you been bothered by any of the following problems? 1. Little interest or pleasure in doing things: not at all 2. Feeling down, depressed, or hopeless: not at all 3. Trouble falling or staying asleep, or sleeping too much: not at all 4. Feeling tired or having little energy: not at all 5. Poor appetite or overeating: not at all 6. Feeling bad about yourself - or that you are a failure or have let yourself or your family down: not at all 7. Trouble concentrating on things, such as reading the newspaper or watching television: not at all 8. Moving or speaking so slowly that other people could have noticed. Or the opposite - being so fidgety or restless that you have been moving around a lot more than usual: not at all 9. Thoughts that you would be better off or of hurting yourself in some way: not at all Total score: 0 Depression Screening Interpretation: Negative Depression Screening Done: Yes 68789 - PHQ-9 Billing: Yes Source: Developed by Drs. Shlomo Ulrich, Soraya Tang, Titus Austin and colleagues, with an educational isabel from [employer]. Thrive Questionnaire Date Thrive assessed: 03/21/25 I am a: Patient What is your living situation today?: I have a steady place to live Within the past 12 months, did the food you bought not last and you didn't have the money to get more?: Never true Within the past 12 months, did you worry whether your food would run out before you got money to buy more?: Never true Do you have trouble paying for medicines?: No Do you have trouble getting transportation to medical appointments?: No Do you have trouble paying your heating and electricity bill?: No Do you have trouble taking care of your child, family member or friend?: No Do you have trouble with day-to-day activities such as bathing, preparing meals, shopping, managing finances, etc.?: No Are you currently unemployed and looking for a job?: No Are you interested in more education?: No Please select the resources that you would like help with: None Currently or been in a relationship where the following occur: No concerns re ported THRIVE Score: 0 AUDIT C Alcohol Use Questionnaire (AUDIT-C) 1. How often do you have a drink containing alcohol?: 2-3 times a week 2. How many drinks containing alcohol do you have on a typical day when you are drinking?: 1 or 2 3. How often do you have six or more drinks on one occasion?: Never Total Score: 3 Score Reviewed/Action Taken: No VALENTIN-7 AMB Questionnaire VALENTIN-7 Date VALENTIN - 7 assessed: 02/01/25 Feeling nervous, anxious, or on edge: 0 = Not at all Not being able to stop or control worryin = Not at all Worrying too much about different things: 0 = Not at all Trouble relaxin = Not at all Being so restless that it is hard to sit still: 0 = Not at all Becoming easily annoyed or irritable: 0 = Not at all Feeling afraid as if something awful might happen: 0 = Not at all Total VALENTIN-7 score (0-4 normal; 5-9 mild; 10-14 moderate; 15-21 severe): 0 Source: Developed by Drs. Shlomo Ulrich, Soraya Tang, Titus Austin and colleagues, with an educational isabel from [employer] VALENTIN-7 Assessment Billing VALENTIN-7 Assessment Tool: VALENTIN-7 Assessment 04717 Review of Systems Const Details: - Cardiovascular: Reports elevated blood pressure. - Endocrine: Reports prediabetes. - Neurological: Reports insomnia. - General: Denies new acute complaints. Physical exam (Primary Care) Vital Signs: Last Vital Signs Temp 98.0 F 04/10/25 09:25 Pulse 62 04/10/25 09:25 Resp 14 04/10/25 09:25 BP 150/82 H 04/10/25 09:25 Pulse Ox 98 04/10/25 09:25 Oxygen Delivery Method Room Air 04/10/25 09:25 Care Plan Goal for BP management: <140/90 at Goal BMI result Body Mass Index 28.3 BMI Assessment/Plan discussion: High BMI High, discussed plan: lifestyle, weight reduction, dietary, physical activity and alcohol moderation Tobacco/Smoking Status: Tobacco use Status Tobacco use date assessed 04/10/25 04/10/25 09:30 Patient Tobacco Use Status Former Tobacco user 04/10/25 09:30 e-Cigarette/Vaping Use Never Used 04/10/25 09:30 PHQ-9: PHQ-9 Score PHQ-9: Total score 0 04/10/25 09:35 Depression Screening Interpretation: Negative Thrive Assessment: Date of Thrive Assessment Date Thrive assessed 02/01/25 04/10/25 09:30 Currently or been in a relationship where the following occur: No concerns reported Const Other: Appearance: Alert. Oriented X3. No acute distress. Head: Normal external exam. Normocephalic. Atraumatic. Eyes: Pupils are equal, round, and reactive to light. Extraocular movements intact. Conjunctiva and sclera normal. Eyelids normal. Throat: Pharynx normal. Uvula midline. Moist mucous membranes. Neck: Normal inspection. Neck supple. Full range of motion. Cardiovascular: Normal heart rate and rhythm. Respiratory: No respiratory distress. Painless inspiration. Back: Full range of motion noted. Skin: Skin warm and dry. Normal skin color. Extremities: Extremities exhibit normal range of motion. Neuro: Oriented X 3. No motor deficit. No sensory deficit. Reflexes normal. Results Reviewed Results Reviewed: - Labs: Fasting glucose at 105 mg/dL (November), normal liver enzymes, normal PSA levels. Coding Level of Care Code Est Pt Level 4 (54342) Complex EM visit Add On G2211 Diagnoses Establishing care with new doctor, encounter for Z76.89 Essential hypertension I10 Insomnia G47.00 Overweight with body mass index (BMI) of 28 to 28.9 in adult E66.3; Z68.28 Prediabetes R73.03 Additional Codes VALENTIN-7 Assessment Billing - VALENTIN-7 Assessment Tool: VALENTIN-7 Assessment 66408 ([id number]) PHQ-9 - 40352 - PHQ-9 Billing: Yes ([id number]) Assessment & Plan Assessment & Plan (1) Establishing care with new doctor, encounter for: Code(s): Z76.89 - Persons encountering health services in other specified circumstances Category: Medical (2) Essential hypertension: Code(s): I10 - Essential (primary) hypertension Category: Medical Plan: The patient will continue lifestyle modifications, including dietary changes and exercise, to manage hypertension. Blood pressure will be monitored at home, with a follow-up in six months to evaluate the need for medication. Condition is chronic and stable will continue to monitor. (3) Insomnia: Code(s): G47.00 - Insomnia, unspecified Category: Medical Plan: The patient will explore alternative treatments due to insurance coverage changes for temazepam. Communication with the insurance company will be facilitated to document past medication trials. Condition is chronic and stable continue to monitor. (4) Overweight with body mass index (BMI) of 28 to 28.9 in adult: Code(s): E66.3 - Overweight; Z68.28 - Body mass index [BMI] 28.0-28.9, adult Category: Medical Plan: Patient to continue improving diet and exercise regimen. Condition is chronic and stable continue to monitor. (5) Prediabetes: Code(s): R73.03 - Prediabetes Category: Medical Plan: Dietary management and regular physical activity will be continued to control blood glucose levels. Regular monitoring of fasting glucose is advised. Condition is chronic and stable continue to monitor. Plan Plan Patient was informed and verbally consented to the use of an ambient scribe for clinic note documentation during this visit. 1. Essential Hypertension The patient will continue lifestyle modifications, including dietary changes and exercise, to manage hypertension. Blood pressure will be monitored at home, with a follow-up in six months to evaluate the need for medication. 2. Prediabetes Dietary management and regular physical activity will be continued to control blood glucose levels. Regular monitoring of fasting glucose is advised. 3. Insomnia The patient will explore alternative treatments due to insurance coverage changes for temazepam. Communication with the insurance company will be facilitated to document past medication trials. During the visit, I discussed the management of the patient's hypertension, emphasizing non-pharmacological approaches such as diet and exercise. The patient prefers to continue these methods and will monitor his blood pressure at home. We agreed on a follow-up in six months to reassess his condition. For prediabetes, we discussed the importance of maintaining dietary and lifestyle modifications to manage blood glucose levels. The patient is aware of the need for regular monitoring. Regarding insomnia, we addressed the insurance issue with temazepam and the potential need for alternative treatments. The patient was advised to provide any relevant insurance communications for further assistance. Patient Instructions: - Continue with regular physical activity and dietary modifications to manage blood pressure and glucose levels. - Monitor blood pressure at home and aim for readings below 140/80 mmHg. - Follow up in six months to reassess hypertension management. - Provide any insurance communications regarding insomnia medication to the office. - Maintain regular monitoring of fasting glucose levels.
--- OUTSIDE RECORDS SUMMARY | 2025-04-10 09:59 | XMS_ITS | Clinical Summary ---
Author Organization [facility] lin Address [address] [place] [address] Care Team Providers Care Lining Repairer Name Role Phone Shlomo Aggarwal DO Primary Care Provider [phone] Allergies Active Allergy Reactions Criticality Noted Date [...] Adults 18 yrs or above (or HM Modifier)([facility]) 1973 Hepatitis C Virus Infection in Adolescents and Adults: Screening (or Modifier) ([facility] ) 1973 SDOH Screening Reminder: Yulissa [place]ell[place]ot for all adults ([facility]) 1973 Tobacco Smoking Cessation: i n Adults excluding Women: Behavioral and Pharmacotherapy Interventions ([facility]) 1973 DTaP/Tdap/Td Vaccines ([facility]) (1 - Tdap) 1974 Colorectal Cancer Screening 45 -75 Yrs (or HM Modifier) 02/04/2000 Colorectal Cancer: FLEXIBLE SIGMOIDOSCOPY Screening every 5 yrs 02/04/2000 Colorectal Cancer: Fecal Immunochemical Test (FIT) [facility]ually [facility] 02/04/2000 Colorectal Cancer: High-sens itivity gFOBT Screening Annually [facility] 02/04/2000 Colorectal Cancer: Stool Col oguard Screening every 3 yrs 02/04/2000 Colorectal Cancer:CT Colonog mallory Screening every 5 yrs 02/04/2000 Zoster/Shingles Vaccine Seri es Screening: Adults aged 18+ yrs (or HM Modifiers)([facility]) (1 of 2) 2005 Pneumococcal Vaccination Scr eening: Patients 50+ yrs of age ([facility]) (2 of 2 - PCV) 01/06/2019 01/06/2018, 09/28/2017, 09/10/2016 COVID-19 Vaccine Screening: Initial Series and Booster Status ([facility]) (2023- season) 2024 02/15/2024 Flu Vaccination: Ages 65+: Y early High Dose Recommended (or Modifier)([facility]) 06/14/2025 09/08/2018, , 09/10/2016 RSV Vaccines (1 - 1-dose 75+ series) 2030 [employer] Devices Not on file Insurance MEDICARE Care Teams Lining Repairer Relationship Specialty Start Date End Date Shlomo Aggarwal DO [address] [place] [phone] PCP - General Internal Medicine 08/14/20
== END 2025-04-10 09:57 | disposition home or self-care (01) ==
LOC: HO.HMCSH 09:19
PROVIDERS: PCP Internal Medicine; Visit Provider Physician Assistant Medical
DX: Z76.89 Persons encountering health services in other specified circumstances (principal); I10 Essential (primary) hypertension; G47.00 Insomnia, unspecified; E66.3 Overweight; Z68.28 Body mass index [BMI] 28.0-28.9, adult; R73.03 Prediabetes

== ENCOUNTER → 2025-04-10 09:19 | Outpatient (BNVA) | payer MEDICARE, OTHER, SELFPAY | PROVIDERS: PCP Internal Medicine; Visit Provider Physician Assistant Medical | DX: I10 Essential (primary) hypertension (principal); G47.00 Insomnia, unspecified; R73.03 Prediabetes; E66.3 Overweight; Z68.28 Body mass index [BMI] 28.0-28.9, adult; Z76.89 Persons encountering health services in other specified circumstances; Z71.3 Dietary counseling and surveillance | CPT/HCPCS: 96127; 99212 ==

== ENCOUNTER 2025-10-31 13:21 | Outpatient (AMB) | payer MEDICARE, OTHER, SELFPAY ==
[2025-10-31 13:34] VITALS: BP 136/76; PULSE 66; RESP 14; TEMP 36.4; O2SAT 98; BMI 28.5
--- NOTE | 2025-10-31 13:34 | AM.OFFVISMDC ---
Intake Vital Signs 10/31/25 13:34 Height 5 ft 3 in Weight 161 lb BMI 28.5 BP 136/76 Blood Pressure Location Rt brachial Position Sitting Respiration 14 Pulse 66 Pulse Source Pulse Oximeter Temp 97.6 F Temp Source Temporal Artery Scan Pulse Oximetry (%) 98 Oxygen Delivery Method Room Air Intake Visit Reasons: [id number] Rotary Operator Required: No Accompanied by: Self / Same As Patient Allergies bee venom protein (honey bee) Allergy (Verified 10/31/25 13:46) Rash Latex, Natural Rubber Allergy (Verified 10/31/25 13:46) Rash Medication List - Last Reconciled 10/31/25 by Ann Leavitt PA-C bupropion HCl XL 150 mg PO QAM doxepin 3 mg PO BEDTIME PRN 90 days epinephrine 0.3 mg (0.3 mL) IM Q10M PRN escitalopram oxalate 10 mg PO DAILY gabapentin 100 mg PO BEDTIME lorazepam (Ativan) 1 mg PO DAILY PRN multivitamin 1 tab PO DAILY omeprazole 20 mg PO DAILY sildenafil 100 mg PO DAILY PRN HPI HPI Comments History of Present Illness Details Patient is here for an Annual Wellness Visit today. The patient is a 70 year old male presenting for an annual wellness visit. His medical history is notable for cured Hepatitis C, and he follows up with his molding engineer, Dr. Boo, annually for monitoring. His late also had Hepatitis C and from cancer, which developed despite being cured of the virus, likely secondary to cirrhosis. The patient has a diagnosis of prediabetes, with a previous Hemoglobin A1c of 5.9% in December 2024. He also has a history of epistaxis, with a notable episode in September that required cauterization with silver nitrate at an urgent care facility for a friable vessel; he has had no recurrence since the procedure. His social history is significant for being a former smoker, having quit approximately two and a half years ago. He smoked about one pack per day for 25 to 30 years and also had secondhand smoke exposure. He is physically active, hiking 3-4 times per week and also enjoys scuba diving. Regarding preventative health, his cholesterol was checked on 11/30/2024 with good results, and a PSA test on the same date was negative. His next colonoscopy is due in approximately two years. He is up to date on his immunizations, including flu, pneumococcal, and Hepatitis B shots. He requests a refill for lorazepam. Social History - Tobacco Use: The patient is a former smoker, having quit 2.5 years ago after smoking approximately 1 pack per day for 25-30 years. - He also reports significant secondhand smoke exposure from his late . - Exercise: He is physically active, hiking 3-4 days per week for 45-60 minutes per session. - He also participates in recreational activities such as skiing and scuba diving. - Family Status: The patient's from cancer. - He has been in a relationship with his girlfriend (марина?herb) for 1.5 years. - Functional Status: The patient is independent with all activities of daily living (ADLs) and instrumental activities of daily living (IADLs), including shopping and meal preparation. - Sexual Health: He is sexually active with his girlfriend and does not use condoms. - Safety: He reports wearing a seatbelt, having grab bars in the bathroom, and having working smoke detectors. - Diet: He is mindful of his diet due to prediabetes, which has been influenced positively by his girlfriend. List of all patient's Health Care Provider's PCP: Ann Leavitt PA-C Marine Service Manager- Dr. Boo Eye octor- Dr. Arias Reviewed past medical history- yes Reviewed surgical / hospitalization history- yes Reviewed family history- yes Reviewed current medications- yes Review all current providers patient is actively being followed by- yes Risk Factors Do exercise? yes How many days per week? 3-4 Minutes per episode question? 1 hour Do crawford regularly? yes water pick Do go to the dentist yearly? yes or every 6 months? yes Do use a seatbelt in the vehicle? yes Sexual health: Do you use protection such as condom's? with [facility] 1-1/2 years no condom's Home safety Throw rugs? Yes Grab bars? Yes Raised toilet seat? Have one uses it if needed Working smoke detectors? Yes Fall risk assessment Fall risk? No fall risk Have you had any falls with injuries in the past year? only skiing otherwise no other falls Have you had 2 or more falls in the past year? No Fall risk assessment: not a fall risk Visit History Last Wellness Visit: Date? unsure Last hospitalization: If any? none in past few years Additonal Services needed/Case Management Referrals? none at this time Social? none at this time Financial? none at this time Medical referrals? none at this time Education? Asthma? none at this time COPD? none at this time Diabetes? none at this time Medication management? none at this time [facility] Medical History (Updated 10/31/25 @ 14:35 by Ann Leavitt PA-C) Cancer screening History of hepatitis C Healthcare maintenance Annual wellness visit Prediabetes Overweight with body mass index (BMI) of 28 to 28.9 in adult Establishing care with new doctor, encounter for Erectile dysfunction Hyperhidrosis Overweight (BMI 25.0-29.9) Chronic night sweats Elevated blood pressure reading Restless leg syndrome Follow-up exam, 3-6 months since previous exam Unexplained night sweats Rib pain on right side Former smoker Depression Epigastric hernia GERD (gastroesophageal reflux disease) Nicotine dependence Chronic hepatitis Insomnia Anxiety Seasonal allergies Essential hypertension Surgical History History of colonoscopy (~12/25/15) History of liver biopsy H/O wisdom tooth extraction Social History Housing: House Alcohol intake: current Alcohol intake frequency: a few times a week Patient Tobacco Use Status: Former Tobacco user e-Cigarette/Vaping Use: Never Used Second Hand Smoke Exposure: Yes service: No Current occupational status: retired Cognitive needs: No Hearing needs: No Vision needs: Yes (Glasses) Questionnaire Medicare Wellness Checkup [age] What gender do you identify with?: male During the past 4 weeks, how much have you been bothered by emotional problems such as feeling anxious, depressed, irritable, sad or downhearted, and blue?: quite a bit During the past 4 weeks, has your physical & emotional health limited your social activities with family, friends, neighbors, or groups?: slightly During the past 4 weeks, how much bodily pain have you generally had?: mild pain During the past 4 weeks, was someone available to help you if you needed & wanted help?: yes, as much as I wanted During the past 4 weeks, what was the hardest physical activity you could do for at least 2 minutes?: heavy Can you get to places out of walking distance without help? (For eg., can you travel alone on buses, taxis or drive your car?): Yes Can you go shopping for groceries or clothes without someone's help?: Yes Can you prepare your own meals?: Yes Can you do your housework without help?: Yes Because of any health problems, do you need the help of another person with your personal care needs such as eating, bathing, dressing or getting around the house?: No Can you handle your own money without help?: Yes During the past 4 weeks, how would you rate your health in general?: very good During the past 4 weeks how have things been going for you?: pretty well Are you having difficulties driving your car?: no Do you always fasten your seat belt when you are in a car?: yes, usually During past 4 weeks, have you been bothered by the following: never: Falling or dizzy when standing up and Problems using the telephone?, seldom: Trouble eating well?, Teeth or denture problems? and Tiredness or fatigue? and sometimes: Sexual problems? Have you fallen 2 or more times in the past year?: No Are you afraid of falling?: No During the past 4 weeks, how many drinks of wine, beer, or other alcoholic beverages did you have?: 6-9 drinks per week Do you exercise for about 20 minutes 3 or more times a week?: yes, all the time Have you been given information to help with the following?: yes: Keeping track of your medications? and no: Hazards in your house that might hurt you? How often do you have trouble taking medicines the way you have been told to take them?: I always take medicine as prescribed How confident are you that you can control & manage most of your health problems?: very confident What is your race?: White Mini Mental State Exam (MMSE) Orientation What is the (year) (season) (date) (day) (month)?: year, season, date, day and month Where are we (state) (county) (town or city) (hospital) (floor)?: state, county, town or city, hospital/clinic and floor Registration Name of 3 unrelated objects clearly and slowly, then ask patient to repeat all 3 of them. (1st repeat determines score. Make sure they can repeat all three): object 1, object 2 and object 3 Attention & Calculation (CHOOSE ONE) Ask pt to begin with 100 & count backward by 7. Stop after 5 repeats. If pt cannot ask them to spell the word WORLD backward.: 93, 86, 79, 72 and 65 Spell WORLD backwards (DLROW): 5 letters Recall Ask patient to repeat the 3 items from question #3.: object 1, object 2 and object 3 Language Show patient a wristwatch & ask what it is. Repeat for pencil.: watch and pencil Ask the patient to repeat the phrase 'No ifs, ands, or buts' after you.: correct Ask the patient to 'take a piece of paper with their right hand' 'fold paper in half' 'place paper on floor': take paper in right hand, fold paper in half and place paper on floor Print the sentence 'CLOSE YOUR EYES' on a piece. If patient actually closes eyes then score.: followed written direction Give patient a blank piece of paper & ask to write a sentence. Score if it contains a noun & verb.: sentence contains subject and verb Ask patient to copy figure of intersecting pentagons exactly. Score if all 10 angles & 2 intersects are included.: all 10 angles present & 2 are intersected Score Score: 35 Activity of Daily Living Bathing - sponge bath, tub bath or shower: receives no assistance (gets in/out by self, if usual bathing means Dressing - getting clothes from closets & drawers, including inner/outer garments & fasteners.: gets clothes & gets completely dressed without help Toileting - going to the 'toilet room' for urine/bowel elimination & cleaning self/arranging clothes: goes to toilet room, cleans self, arranges clothes without help Transfer: moves in & out of bed and chair without help (may use support object) Continence: controls urination/bowel movements completely by self Feeding: feeds self without help Total Score: 0 Information obtained from: patient Using telephone: independent Traveling: independent Shopping: independent Preparing meals: independent Housework: independent Taking medicine: independent Managing money: independent PHQ-9 Over the last 2 weeks, how often have you been bothered by any of the following problems? 1. Little interest or pleasure in doing things: not at all 2. Feeling down, depressed, or hopeless: not at all 3. Trouble falling or staying asleep, or sleeping too much: several days 4. Feeling tired or having little energy: not at all 5. Poor appetite or overeating: not at all 6. Feeling bad about yourself - or that you are a failure or have let yourself or your family down: not at all 7. Trouble concentrating on things, such as reading the newspaper or watching television: several days 8. Moving or speaking so slowly that other people could have noticed. Or the opposite - being so fidgety or restless that you have been moving around a lot more than usual: several days 9. Thoughts that you would be better off or of hurting yourself in some way: not at all Total score: 3 Depression Screening Interpretation: Negative Depression Screening Done: Yes [id number] - PHQ-9 Billing: Yes Source: Developed by Drs. Shlomo Ulrich, Soraya Tang, Titus Austin and colleagues, with an educational isabel from [employer]. Review of Systems Narrative Review of Systems - Constitutional: Denies unintentional weight loss. - HEENT: Reports history of epistaxis, which resolved with treatment in September. - Cardiovascular: Denies chest pain or orthopnea. - Respiratory: Denies dyspnea on exertion. - Gastrointestinal: Denies melena or hematochezia. - Genitourinary: Denies urinary incontinence. - Musculoskeletal: Denies falls, other than during recreational skiing. - Denies leg swelling. Const Details: - Constitutional: Denies unintentional weight loss. - HEENT: Reports history of epistaxis, which resolved with treatment in September. - Cardiovascular: Denies chest pain or orthopnea. - Respiratory: Denies dyspnea on exertion. - Gastrointestinal: Denies melena or hematochezia. - Genitourinary: Denies urinary incontinence. - Musculoskeletal: Denies falls, other than during recreational skiing. - Denies leg swelling. All systems reviewed & are unremarkable except as noted in HPI and below Physical Exam Exam Exam: Physical Exam Appearance: Alert. Oriented X3. No acute distress. Head: Normal external exam. Normocephalic. Atraumatic. Eyes: Pupils are equal, round, and reactive to light. Extraocular movements intact. Conjunctiva and sclera normal. Eyelids normal. Ears: External auditory canal normal. Tympanic membranes normal. Throat: Pharynx normal. Uvula midline. Moist mucous membranes. Neck: Normal inspection. Neck supple. Full range of motion. No adenopathy. Thyroid Normal. No meningeal signs. No neck mass noted. Cardiovascular: Normal heart rate and rhythm. Heart sound normal. No murmurs noted. Pulses normal throughout. Respiratory: No respiratory distress. Painless inspiration. Breath sounds normal. No wheezes/rales/rhonchi noted. Chest nontender. No accessory muscle usage noted or decreased air movement noted. Abdomen: Soft and nontender. Bowel sounds normal in all 4 quadrants. No distention noted. No organomegaly noted. No visible injury noted. Back: No costovertebral angle tenderness. Full range of motion noted. Skin: Skin warm and dry. Normal skin color. Normal skin turgor. No rashes/lesions/lacerations noted. Extremities: No lower extremity edema. Extremities exhibit normal range of motion. Extremities nontender. Neuro: Oriented X 3. No motor deficit. No sensory deficit. Reflexes normal. Vital Signs: Last Vital Signs Temp 97.6 F 10/31/25 13:34 Pulse 66 10/31/25 13:34 Resp 14 10/31/25 13:34 BP 136/76 10/31/25 13:34 Pulse Ox 98 10/31/25 13:34 Oxygen Delivery Method Room Air 10/31/25 13:34 BMI result Body Mass Index 28.5 Const Other: Appearance: Alert. Oriented X3. No acute distress. Head: Normal external exam. Normocephalic. Atraumatic. Eyes: Pupils are equal, round, and reactive to light. Extraocular movements intact. Conjunctiva and sclera normal. Eyelids normal. Ears: External auditory canal normal. Tympanic membranes normal. Throat: Pharynx normal. Uvula midline. Moist mucous membranes. Neck: Normal inspection. Neck supple. Full range of motion. No adenopathy. Thyroid Normal. No meningeal signs. No neck mass noted. Cardiovascular: Normal heart rate and rhythm. Heart sound normal. No murmurs noted. Pulses normal throughout. Respiratory: No respiratory distress. Painless inspiration. Breath sounds normal. No wheezes/rales/rhonchi noted. Chest nontender. No accessory muscle usage noted or decreased air movement noted. Abdomen: Soft and nontender. Bowel sounds normal in all 4 quadrants. No distention noted. No organomegaly noted. No visible injury noted. Back: No costovertebral angle tenderness. Full range of motion noted. Skin: Skin warm and dry. Normal skin color. Normal skin turgor. No rashes/lesions/lacerations noted. Extremities: No lower extremity edema. Extremities exhibit normal range of motion. Extremities nontender. Neuro: Oriented X 3. No motor deficit. No sensory deficit. Reflexes normal. HEENT Other: Hearing screening Whisper test- normal hearing/whisper test Eyes Other: vision screening- 20/13 bilateral 20/15 left 20/13 right corrective lenses Other: urinary incontinence? Patient denies Neuro Other: balance- normal balance Romberg- normal Romberg tandem walk test- normal tandem walk test walk-in turned test- normal walk and turn test rise from sit to stand- normal rise from [id number] test Office Procedures Vision Screening Right Eye: 20/13 Left Eye: 20/15 Bilateral: 20/13 Color: Pass Corrected: Pass Overall Vision Screening Results: Pass Comments: Patient wears corrective lenses/glasses during exam. [id number] - Vision Screening Results AMB Hemoglobin A1c AMB Hemoglobin A1c 5.8 % Last Edit by DOREEN Lino on 10/31/25 14:15 Results Reviewed Results Reviewed: Laboratory Last Values Hgb A1c (Clinic) 5.8 % (4.0-6.0) 10/31/25 14:13 - Labs: - Hemoglobin A1c (in-office): 5.8%. - Hemoglobin A1c (December 2024): 5.9%. - PSA (11/30/2024): Negative. - Lipid Panel (11/30/2024): Results noted as Assessment & Plan Assessment & Plan (1) Annual wellness visit: Code(s): Z00.00 - Encounter for general adult medical examination without abnormal findings Plan: The patient presents for his annual wellness visit. A discussion on advance care planning was initiated, and the patient was provided with a Medical Orders for Life-Sustaining Treatment (MOLST) form to review. He was also given a healthcare proxy form, as his previous proxy is , and he will consider appointing his fianc?e. He will take the forms home to discuss with his fianc?e and return them to the clinic to be added to his chart. The patient is up to date on all immunizations. A follow-up visit is scheduled for one year from now, and lab orders will be placed for him to complete before that appointment. (2) Healthcare maintenance: Code(s): Z00.00 - Encounter for general adult medical examination without abnormal findings Plan: The patient presents for his annual wellness visit. A discussion on advance care planning was initiated, and the patient was provided with a Medical Orders for Life-Sustaining Treatment (MOLST) form to review. He was also given a healthcare proxy form, as his previous proxy is , and he will consider appointing his fianc?e. He will take the forms home to discuss with his fianc?e and return them to the clinic to be added to his chart. The patient is up to date on all immunizations. A follow-up visit is scheduled for one year from now, and lab orders will be placed for him to complete before that appointment. (3) Prediabetes: Code(s): R73.03 - Prediabetes Plan: The patient has a history of prediabetes, with a previous A1c of 5.9%. An in-office A1c check was performed today, which showed an improvement to 5.8%. The patient is encouraged to continue his current diet and exercise regimen, which has contributed to this improvement. His A1c will be rechecked with his annual labs next year. (4) Former smoker: Comment: Quit in 2021; 30 year hx 1 pack per day Code(s): Z87.891 - Personal history of nicotine dependence Plan: Given the patient's 25 to 30 pack-year smoking history, even though he quit 2.5 years ago, he is eligible for screening for smoking-related conditions. A referral will be placed for a lung cancer screening. An ultrasound of the abdominal aorta will also be ordered to screen for an aneurysm. (5) Anxiety: Code(s): F41.9 - Anxiety disorder, unspecified Plan: The patient requested a refill for lorazepam, which he uses infrequently. A prescription for 30 tablets of lorazepam will be sent to his pharmacy. (6) History of hepatitis C: Code(s): Z86.19 - Personal history of other infectious and parasitic diseases Plan: The patient has a history of cured Hepatitis C. He will continue his annual follow-up with his molding engineer, Dr. Boo, for ongoing monitoring. His next appointment with Dr. Boo is scheduled for next month. (7) Cancer screening: Code(s): Z12.9 - Encounter for screening for malignant neoplasm, site unspecified Plan: The patient's PSA was negative as of November 2024. His next colonoscopy is due in approximately two years, which will be managed by his molding engineer. No family history of breast cancer was reported, but the patient was advised to report any new lumps. Plan Plan Patient was informed and verbally consented to the use of an ambient scribe for clinic note documentation during this visit. 1. Annual Wellness Visit/Health Maintenance The patient presents for his annual wellness visit. A discussion on advance care planning was initiated, and the patient was provided with a Medical Orders for Life-Sustaining Treatment (MOLST) form to review. He was also given a healthcare proxy form, as his previous proxy is , and he will consider appointing his fianc?e. He will take the forms home to discuss with his fianc?e and return them to the clinic to be added to his chart. The patient is up to date on all immunizations. A follow-up visit is scheduled for one year from now, and lab orders will be placed for him to complete before that appointment. 2. Prediabetes The patient has a history of prediabetes, with a previous A1c of 5.9%. An in-office A1c check was performed today, which showed an improvement to 5.8%. The patient is encouraged to continue his current diet and exercise regimen, which has contributed to this improvement. His A1c will be rechecked with his annual labs next year. 3. History Of Tobacco Use Given the patient's 25 to 30 pack-year smoking history, even though he quit 2.5 years ago, he is eligible for screening for smoking-related conditions. A referral will be placed for a lung cancer screening. An ultrasound of the abdominal aorta will also be ordered to screen for an aneurysm. 4. Anxiety The patient requested a refill for lorazepam, which he uses infrequently. A prescription for 30 tablets of lorazepam will be sent to his pharmacy. 5. History Of Hepatitis C, Cured The patient has a history of cured Hepatitis C. He will continue his annual follow-up with his molding engineer, Dr. Boo, for ongoing monitoring. His next appointment with Dr. Boo is scheduled for next month. 6. Cancer Screening The patient's PSA was negative as of November 2024. His next colonoscopy is due in approximately two years, which will be managed by his molding engineer. No family history of breast cancer was reported, but the patient was advised to report any new lumps. I reviewed the purpose of the annual wellness visit with the patient. I educated him on the importance of lung cancer and abdominal aortic aneurysm screening due to his significant smoking history and initiated referrals for both. We discussed his prediabetes, and I informed him that his in-office A1c showed improvement to 5.8%, encouraging continued diet and exercise. I provided a prescription for his lorazepam as requested. We had an extensive discussion about advance care planning. I provided him with a MOLST form and a healthcare proxy form, explaining the different options for life-sustaining treatments such as CPR, intubation, and dialysis, clarifying that some can be short-term interventions. I advised him to discuss these with his fireyes?e and return the completed forms to the clinic. I recommended a follow-up visit in one year and will place orders for him to have annual blood work done prior to that visit. Orders: Orders US abdominal aortic aneurysm Today Z87.891 - Personal history of nicotine dependence AMB Hemoglobin A1c Today Z13.9 - Encounter for screening, unspecified AMB Vision Screening Today Z01.00 - Encounter for examination of eyes and vision without abnormal findings Referrals Lung Cancer Screening Referral Z87.891 - Personal history of nicotine dependence Medications: New lorazepam (Ativan) 1 mg PO DAILY PRN 30 tabs 0RF anxiety Patient Instructions: - Continue your current diet and exercise routine, as it has helped lower your A1c to 5.8%. - Please complete the lung cancer screening and the abdominal aorta ultrasound that have been ordered for you. - We have sent a refill for your lorazepam prescription to your pharmacy. - Take the advance directive (MOLST) and healthcare proxy forms home to review. - Discuss them with your fianc?e, complete them, and bring them back to the office at your convenience. - Continue to follow up annually with your molding engineer (Dr. Boo) and your eye doctor (Dr. Dickerson). - Schedule a follow-up appointment here in one year. - We will place an order for you to get blood work done before that visit. - If you notice any new lumps in your chest area, please make an appointment to be seen. Quality Reporting (2019) Depression/Bipolar (159/160/161/177) PHQ-9: Total score: 3 Coding Level of Care Code Medicare First (G0438) Est Pt Level 4 (73872) Diagnoses Annual wellness visit Z00.00 Healthcare maintenance Z00.00 Prediabetes R73.03 Former smoker Z87.891 Anxiety F41.9 History of hepatitis C Z86.19 Cancer screening Z12.9 CPT Codes Advance Care Planning - Time spent: 1-15 minutes, on File ([id number]) Vision Screening - Vision Screenin - Vision Screening ([id number]) Additional Codes PHQ-9 - 95660 - PHQ-9 Billing: Yes ([id number]) Time Spent (min) 60 Advance Care Planning Advance Care Planning discussion: Completed/Scanned Date of discussion: 10/31/25 Who was present: Patient, KAMINI Jackson Forms completed: MOLST Time spent: 1-15 minutes, on File Actual minutes spent: 15 Did not discuss due to Cultural/Spiritual beliefs: No
--- OUTSIDE RECORDS SUMMARY | 2025-10-31 17:26 | XMS_ITS | Clinical Summary ---
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 Active buPROPion (WELLBUTRIN XL) 150 MG ER 24 hr tablet Take 150 mg by mouth daily. Active omeprazole (PRILOSEC) 20 MG tablet Take 20 mg by mouth daily. Active Social History Tobacco Use Types Packs/Day Years Used Date Smoking Tobacco: Never Assessed Education Answer Date Recorded Are you interested in more education? Not on armando e 03/18/2025 Are you concerned about learning? Not on file 03/18/2025 No 03/18/2025 No 03/18/2025 Digital Access Answer Date Recorded No 03/18/2025 No 03/18/2025 Reliable internet access at home? Not on file 03/18/2025 Device with a working camera? Not on file Intimate Partner Violence Answer Date R ecorded Are you denied basic needs s uch as food, clothing, or medical care? No 03/18/2025 In the past 12 months have y ou been in a relationship with a person who hurts, threatens, or tries to control you? No 03/18/2025 Are you denied basic needs s uch as food, clothing, or medical care? No 03/18/2025 In the past 12 months have y ou been in a relationship with a person who hurts, threatens, or tries to control you? No 03/18/2025 Sex and Gender Information Value Date Recorded Sex Assigned at Male 03/18/2025 9:06 AM EDT Legal Sex Male 8:40 AM EDT Gender Identity Male 03/18/2025 9:06 AM EDT Sexual Orientation Straight 03/18/2025 9: 06 AM EDT Last Filed Vital Signs Vital Sign Reading Time Taken Comments Blood Pressure 175/104 03/18/2025 8:53 AM EDT Pulse 57 03/18/2025 8:53 AM EDT Temperature 36.1 C (97 F) 03/18/2025 8:53 AM EDT Respiratory Rate 16 03/18/2025 8:53 AM EDT Oxygen Saturation 99% 03/18/2025 8:53 AM EDT Inhaled Oxygen Concentration - - Weight 74.8 kg (165 lb) 03/18/2025 8:53 AM EDT Height 165.1 cm (5' 5 ) 03/18/2025 8:53 AM EDT Body Mass Index 27.46 03/18/2025 8:53 AM EDT Plan of Treatment Health Maintenance Due Date Last Done Comments Adult Td,Tdap Booster 1955 LIPID PANEL 1955 DEPRESSION SCREENING 1967 SMOKING Hx and SMOKELESS TOB ACCO SCREENING 02/04/1968 HEPATITIS C SCREENING 1973 COLOGUARD 02/04/2000 COLONOSCOPY 02/04/2000 COLORECTAL CANCER SCREENING 02/04/2000 FIT TEST 02/04/2000 FOBT 02/04/2000 SIGMOIDOSCOPY 02/04/2000 VIRTUAL COLONOSCOPY 02/04/2000 PNEUMOCOCCAL VACCINES (50+ y ears) (1 of 1 - PCV) 2005 ZOSTER VACCINES (1 of 2) 2005 INFLUENZA VACCINE (#1) 2025 COVID-19 VACCINE ( - 2024-2 6 season) 2025 RSV VACCINE (1 - 1-dose 75+ series) 2030 HEPATITIS A VACCINES Aged Out No long er eligible based on patient's age to complete this topic HIB VACCINES Aged Out No longer eligi ble based on patient's age to complete this topic MENINGOCOCCAL VACCINES (ACWY) Aged Out No longer eligible based on patient's age to complete this topic MENINGOCOCCAL VACCINES (B) Aged Out N o longer eligible based on patient's age to complete this topic Medical Devices Not on file Insurance MEDICARE PART A & B MEDICARE SUPPLEMENT MEDICARE PART A & B MEDICARE SUPPLEMENT MEDICARE PART A & B MEDICARE SUPPLEMENT MEDICARE PART A & B [facility] MEDICARE SUPPLEMENT MEDICARE PART A & [place] [address] [address] [place] [address] MEDICARE SUPPLEMENT MEDICARE PART A & B [facility] MEDICARE SUPPLEMENT Care Teams 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 It is not the complete legal health record.[facility]
--- OUTSIDE RECORDS SUMMARY | 2025-10-31 17:26 | XMS_ITS | Clinical Summary ---
Author Organization [employer] [employer] Address [address] [place] [address] Care Team Providers Care Composition Siding Worker Name Role Phone Shlomo Aggarwal DO Primary Care Provider [phone] Allergies Active Allergy Reactions Criticality Noted Date [...] AT BEDTIME NEEDED FOR SLEEP 01/27/2024 Active Encounters Date Type Department Care Team Description 09/10/2025 3:10 PM EDT Office Visit [id number] [place] [address] Kathy Monaco NP Need for vaccination (Primary Dx) from Last 3 Months Immunizations Immunization Administration Dates Next Due Fluarix Quadrivalent Prefilled Syringe 7,09/10/2016 Flucelvax Trivalent PFS IM; Without Preservative (18+ mos) 09/08/2018 Fluzone Trivalent High Dose (65+ Years) 09/10/20 25 Fluzone Trivalent High Dose (65+ years) 07/27/20 20 Moderna Spikevax Covid-19 SDV (12+years) 024 Woody Vanegas Covid-19 0. 3mL PFS IM; Without Preservative (12+ yrs) 09/10/2025 Pneumovax 23 Prefilled Syringe 01/06/2018,2016 Prevnar 13 [...] in Adolescents and Adults: Screening (or Modifier) ([facility]) [address] [facility] Screening Reminder: Yulissa miranda for all adults ([facility]) 1973 Tobacco Smoking Cessation: i n Adults excluding Women: Behavioral and Pharmacotherapy Interventions ([facility]) 1973 DTaP/Tdap/Td Vaccines ([facility]) (1 - Tdap) 1974 Colorectal Cancer Screening 45 -75 Yrs (or HM Modifier) 02/04/2000 Colorectal Cancer: FLEXIBLE SIGMOIDOSCOPY Screening every 5 yrs 02/04/2000 Colorectal Cancer: Fecal Immunochemical Test (FIT) Annually [facility] 02/04/2000 Colorectal Cancer: High-sens itivity gFOBT Screening [...] Vaccine Screening: Initial Series and Booster Status ([facility]) ( - 2024-26 season) 2025 09/10/2025, 02/15/2024 RSV Vaccines (1 - 1-dose 75+ series) 2030 Flu Vaccination: Ages 65+: Y early High Dose Recommended (or Modifier)([facility]) Completed 09/10/2025, 07/27/2020, 09/08/2018, Additional history exists Medical Devices Not on file Procedures Procedure Name Priority Date/Time Associated Diagnosis Comments PFIZER SUSAN COVID-19 0.3ML PFS IM; WITHOUT PRESERVATIVE (12+ YRS) Routine 09/10/2025 3:30 PM EDT Need for vaccination FLUZONE TRIVALENT HD IM; WITHOUT PRESERVATIVE (65+ YRS) Routine 09/10/2025 3:30 PM EDT Need for vaccination from Last 3 Months Insurance [facility] MEDICARE Care Teams Composition Siding Worker Relationship Specialty Start Date End Date Shlomo Aggarwal DO [address] [place] [phone] PCP - General Internal Medicine 08/14/20
== END 2025-10-31 14:22 | disposition home or self-care (01) ==
LOC: HO.HMCSH 13:21
PROVIDERS: PCP Physician Assistant Medical; Visit Provider Physician Assistant Medical
DX: Z00.00 Encounter for general adult medical examination without abnormal findings (principal); R73.03 Prediabetes; Z87.891 Personal history of nicotine dependence; F41.9 Anxiety disorder, unspecified; Z86.19 Personal history of other infectious and parasitic diseases; Z12.9 Encounter for screening for malignant neoplasm, site unspecified

== ENCOUNTER → 2025-10-31 13:21 | Outpatient (BNVA) | payer MEDICARE, OTHER, SELFPAY | PROVIDERS: PCP Physician Assistant Medical; Visit Provider Physician Assistant Medical | DX: Z13.31 Encounter for screening for depression (principal); R73.03 Prediabetes | CPT/HCPCS: 83036; 96127 ==